=== PATIENT | female | born 1990 | race Caucasian/White ===

== ENCOUNTER 2017-10-10 17:46 | Inpatient (IN) | payer OTHER ==
[~2017-10-10] VITALS: Ht 157.5 cm; Wt 54.4 kg
--- NOTE | ~2017-10-10 | P ---
[facility] [place] [address] PROCEDURE REPORT Name: ELVIRA STILL Room #: 349-I ADM IN M.R.#: [id number] Admission: 10/10/17 Attend Phys: Karl Carson MD Discharge: Date of : 88 Report #: [id number] THIS REPORT FOR: //name// CC: MELLY physician/PCP Karl Carson MD DATE OF SERVICE: 10/13/2017 PROCEDURE PERFORMED: Colonoscopy. HISTORY OF PRESENT ILLNESS: The patient is a 26-year-old female who was admitted with a history of alcohol abuse for alcohol withdrawal. She has been having some bright red blood per rectum as well as dark stools. Upper endoscopy was performed yesterday by my partner, Dr. Mercy Moser, this showed a mild gastritis. Biopsies were obtained. No evidence of bleeding. Plan is for colonoscopy today. DESCRIPTION OF PROCEDURE: The risks and benefits of the procedure were explained to the patient, those risks including, but not limited to bleeding, perforation and the risk of sedation. She understood these risks and gave informed consent. Sedation was given using propofol per anesthesia. Next, a digital rectal exam was initially performed, which was normal. Next, using a standard Olympus colonoscope, the scope was placed in the patient's anus and advanced under direct vision to the cecum. The overall prep was excellent. The cecum and ileocecal valve were normal in appearance. Terminal ileum was intubated and normal in appearance. Ascending, transverse, descending and sigmoid colon were all normal. The rectal mucosa was normal. There were no abnormalities noted on retroflexion. Close examination of the anal canal showed a small anal fissure. There was no evidence of bleeding. No hemorrhoids were noted. The scope was then withdrawn and the procedure terminated. The patient tolerated the procedure well. IMPRESSION: 1. Small anal fissure, likely source of recent bright red blood per rectum. 2. Otherwise, normal colonoscopy. RECOMMENDATIONS: 1. High fiber diet. 2. Analpram 2.5% b.i.d. for the next 2 weeks and then p.r.n. [facility] [address] [place] [address] PROCEDURE REPORT Name: ELVIRA STILL Room #: 349-I [facility] IN .R.#: [id number] Admission: 10/10/17 Attend Phys: Karl Carson MD Discharge: Date of : 88 Report #: [id number] Thank you for allowing me to participate in her care. By: [id number] Mat Mckay MD /nt
--- NOTE | ~2017-10-10 | PATH ---
[facility] [address] [place] [address] PATHOLOGY RPT PROCEDURE Name: GUERITA STILL Room #: 349-I ADM IN M.R.#: [id number] Admission: 10/10/17 Date of : 88 Discharge: Report #: [id number] Path Case #: [id number] [facility] Accession Number: [id number] . 01 Material submitted: . BIOPSY, GASTRITIS . 01 Clinical history: . Pre-OP DX: Melena Post-OP DX: Gastritis . 02 Diagnosis: Gastric mucosa, gastritis, endoscopic biopsy: - Mild chronic active gastritis. - Negative for intestinal metaplasia or atrophy. - Negative for Helicobacter pylori (please see comment). S/10/13/2017 . 02 Comment: Helicobacter pylori immunohistochemical stain (properly controlled) performed on Block A1 - negative. . An intensive search for Helicobacter pylori-like organisms is negative. Absence of such organisms does not entirely exclude the possibility and may be due to sampling. Other possible etiologies may include chemical gastritis, autoimmune gastritis, gastritis associated with inflammatory bowel disease. Please correlate with clinical, endoscopic, and microbiological studies if clinically indicated. (IUV:maris; 10/13/2017) . 02 Electronically signed: . Rebekah Murray MD, Pathologist NPI- [id number] . 01 Gross description: . Received in formalin labeled "Guerita Still, BX gastritis," are 3 segments of mixon soft tissue measuring 0.9 x 0.6 x 0.2 cm in aggregate dimensions and ranging from 0.4 to 0.7 cm in maximum dimension. The specimen is submitted entirely in cassette A1. (TSD; 10/12/2017) TOB/TOB . 02 CPT . 902803, [id number] Performed at: [address] [place] [id number] [id number] [address] [place] [address] PATHOLOGY RPT PROCEDURE Name: GUERITA STILL Room #: 349-I ADM IN ..#: [id number] Admission: 10/10/17 Date of : 88 Discharge: Report #: [id number] Path Case #: [id number] MD Angel Jarrell MD Phone: [phone] Performed at: [address] [place] [address] [address] [place], [place] [id number] MD Rebekah Murray MD Phone: [phone]
--- NOTE | ~2017-10-10 | HC ---
[facility] [place] [address] CONSULTATION Name: ELVIRA STILL Room #: 349-I ADM IN M.R.#: [id number] Admission: 10/10/17 Attend Phys: Karl Carson MD Discharge: Date of : 88 Report #: [id number] THIS REPORT FOR: //name// CC: MELLY physician/PCP Karl Carson DATE OF SERVICE: 10/12/2017 CONSULTATION REQUESTED BY: Karl Carson MD REASON FOR CONSULTATION: UTI. HISTORY OF PRESENT ILLNESS: The patient is a 26-year-old white woman admitted with alcohol withdrawal. History of alcoholism, previous detoxification, previous seizure disorder. The patient relates significant nausea and vomiting. Nothing said about urinary tract infection type symptoms. Did have blood per rectum. Vomiting on multiple occasions. PAST MEDICAL HISTORY: 1. Alcohol abuse and alcohol withdrawal. Nausea and vomiting, possibly secondary to above. 2. History of peptic ulcer disease 3. Scoliosis. SOCIAL HISTORY: . Three children. Smokes cigarettes. Uses some marijuana. Drinks heavily alcohol. DRUG ALLERGIES: PENICILLIN. MEDICATIONS: Cipro 400 mg IV every 12 hours, vancomycin 750 mg IV twice daily, meropenem 1 g IV every 8 hours, hydrocortisone topical to hand for red man syndrome, pantoprazole, vitamins, thiamine, prochlorperazine p.r.n., nicotine patch, , lorazepam p.r.n., acetaminophen p.r.n., normal saline intravenously. REVIEW OF SYSTEMS: As above. See H and P. PHYSICAL EXAMINATION: GENERAL: A well-developed woman, not toxic looking, no distress, complaining of some abdominal pain. VITAL SIGNS: Temperature 98.1, pulse 72, respirations 20, BP 120/93, weight 120 pounds or 135 pounds, we have 2 choices, height 5.2 inches. HEENMT: Within range. NECK: Supple. LUNGS: Clear. HEART: S1, S2. [facility] [address] [place] [address] CONSULTATION Name: ELVIRA STILL Room #: 349-I ADM IN [facility].#: [id number] Admission: 10/10/17 Attend Phys: Karl Carson MD Discharge: Date of : 88 Report #: [id number] BREASTS: Deferred. ABDOMEN: Soft, no masses or megaly. PELVIC AND RECTAL: Deferred. EXTREMITIES: No clubbing, cyanosis. NEUROLOGIC: Grossly within normal limits. LABORATORY DATA: Sodium 138, potassium 3, BUN 6, creatinine 0.6, glucose 86, SGOT 52, alkaline phosphatase 1.8, hypomagnesemia 1.6 mg/dL elevation of CPK 352. Alcohol on admission 161. Urine drug screen positive for tetrahydrocannabinol. WBC 11,000 on admission, 5200 today, hemoglobin 13.5 on admission, 11 g/dL today. MCV low at 79.7, possible iron deficiency anemia. Platelets normal on admission, decreased to 124,000 today. test negative. Urinalysis positive for protein, ketones, blood, positive nitrite, 2+ leukocyte esterase. The microscopic exam revealed pyuria and bacteriuria. MICROBIOLOGY DATA: Revealed greater than 100,000 colonies of Staphylococcus aureus, oxacillin sensitive. Stool positive for occult blood. RADIOLOGY EVALUATION: CT scan of abdomen and pelvis revealed fatty liver, splenomegaly, dilated stomach, lung genao clear. Gallbladder distended. No evidence of cholecystitis. Ovarian cysts noted. ASSESSMENT: 1. Question urinary tract infection with Staphylococcus aureus. 2. Alcoholism with steatohepatitis and splenomegaly. 3. Thrombocytopenia secondary to above. SUGGESTIONS: Recommend discontinue vancomycin, Cipro and decrease dose of meropenem. The patient has experienced red man syndrome from vancomycin. We will discontinue. Dr. Carson, thank you for requesting my suggestion. <ELECTRONICALLY SIGNED> By: Nahid Whyte MD 10/13/17 [id number] Nahid Whyte MD /nt
--- NOTE | ~2017-10-10 | EKG ---
[address] [address] ELECTROCARDIOGRAM REPORT Name: ELVIRA STILL Room #: 349-I DIS IN M.R.#: [id number] Admission: 10/10/17 Attend Phys: Karl Carson MD Discharge: 10/14/17 Date of : 88 Report #: [id number] THIS REPORT FOR: //name// [facility] Test Date: 2017-10-13 Test Time: 18:34:03 Pat Name: ELVIRA STILL Department: Room: [facility] Gender: F Principal Mechanical Engineer: Raghav STRICKLAND : 1990 Requested By: Karl Carson Order Number: [id number] MD: Aaron Whyte Measurements Intervals [place] Rate: 128 P: 71 [place]: 126 QRS: 60 QRSD: 98 T: 55 QT: 347 QTc: 507 Interpretive Statements Sinus tachycardia Consider right atrial enlargement No previous ECG available for comparison Electronically Signed On 10-14-2017 21:32:19 CDT by Aaron Whyte [email or web address] <ELECTRONICALLY SIGNED> By: Aaron Whyte MD 10/14/172131 33 33 Aaron Whyte MD /YAN
[2017-10-10 18:00] VITALS: BP 144/95
[2017-10-10 18:49] LABS: HEMATOCRIT 41.7 % (37.0-47.0); HEMOGLOBIN 13.5 gm/dL (12.0-15.0); MCH 25.9 pg (26.0-34.0); MCHC 32.5 g/dL (28.0-37.0); MCV 79.8 fL (80.0-100.0); PLATELET COUNT 252 thou/uL (150-400); RBC 5.22 mil/uL (4.20-5.00); RDW 22.5 % (10.5-14.5); WBC 11.1 thou/uL (4.0-11.0)
[2017-10-10 18:59] LABS: ANION GAP 24 mmol/L (7-16); BUN 12 mg/dL (7-18); CHLORIDE 94 mmol/L (98-107); CO2 18 mmol/L (21-32); CREATININE 0.9 mg/dL (0.6-1.0); GLUCOSE 152 mg/dL (74-106); POTASSIUM 4.3 mmol/L (3.5-5.1); SODIUM 136 mmol/L (136-145)
[2017-10-10 19:04] LABS: ALBUMIN 4.7 g/dL (3.4-5.0); LIPASE 149 U/L (73-393); SALICYLATE < 2.8 mg/dL (2.8-20.0); SGOT 52 U/L (15-37); SGPT 24 U/L (30-65); TOTAL PROTEIN 8.9 g/dL (6.4-8.2)
[2017-10-10 19:18] LABS: ABSOLUTE NEUTROPHILS 9.7 thou/uL (1.4-8.2)
[2017-10-10 19:19] LABS: ANISOCYTOSIS 3+; MACROCYTES 1+; OVALOCYTES OCCASIONAL
[2017-10-10 20:14] LABS: URINE BILIRUBIN NEGATIVE (Negative); URINE BLOOD 1+ (Negative); URINE CLARITY CLEAR; URINE COLOR YELLOW; URINE GLUCOSE-RANDOM* NEGATIVE (Negative); URINE KETONES 3+ (Negative); URINE PROTEIN (DIPSTICK) 2+ (Negative); URINE SPECIFIC GRAVITY >= 1.030 (1.005-1.035)
[2017-10-10 20:16] LABS: URINE LEUKOCYTES-REFLEX 2+ (Negative); URINE NITRITE-REFLEX POSITIVE (Negative)
[2017-10-10 20:21] LABS: BACTERIA-REFLEX >30 Many /HPF (None Seen); CASTS None Seen /LPF (None Seen); CRYSTALS None Seen /LPF (None Seen); SQUAMOUS 0-3 Few /LPF (0-3); URINE RBC 3-10 Few /HPF (0-2); URINE WBC-REFLEX >25 Many /HPF (0-5)
[2017-10-10 20:26] LABS: AMP/METHAMP Negative (Negative); BARBITURATES Negative (Negative); BENZODIAZEPINES Negative (Negative); COCAINE Negative (Negative); METHADONE Negative (Negative); OPIATES Negative (Negative); PCP Negative (Negative)
[2017-10-10 22:10] VITALS: BP 152/85
[2017-10-10 22:15] VITALS: BP 134/93
[2017-10-10 22:24] LABS: PHOSPHORUS 3.4 mg/dL (2.5-4.9)
[2017-10-10 23:41] LABS: FOLIC ACID 55.7 ng/mL (8.6-58.9)
[2017-10-11] VITALS (7 sets, daily range): BP systolic 120–150; BP diastolic 86–110
[2017-10-11 06:10] LABS: HEMATOCRIT 31.9 % (37.0-47.0)
[2017-10-11 06:19] LABS: HEMOGLOBIN 10.6 gm/dL (12.0-15.0)
[2017-10-11 17:30] LABS: HEMATOCRIT 34.2 % (37.0-47.0); HEMOGLOBIN 11.2 gm/dL (12.0-15.0)
[2017-10-12 03:23] VITALS: BP 126/90
[2017-10-12 04:47] LABS: ABSOLUTE NEUTROPHILS 3.9 thou/uL (1.4-8.2); BASOPHILS 0.3 % (0.0-2.0); EOSINOPHILS 0.5 % (0.0-3.0); HEMATOCRIT 33.4 % (37.0-47.0); LYMPHOCYTES 21.2 % (24.0-44.0); MCH 26.2 pg (26.0-34.0); MCHC 32.9 g/dL (28.0-37.0); MCV 79.7 fL (80.0-100.0); MONOCYTES 3.8 % (1.0-8.0); POLYS 74.2 % (36.0-66.0); RDW 22.4 % (10.5-14.5); WBC 5.2 thou/uL (4.0-11.0)
[2017-10-12 04:56] LABS: CALCIUM 8.6 mg/dL (8.5-10.1); CREATININE 0.6 mg/dL (0.6-1.0); MAGNESIUM 1.6 mg/dL (1.8-2.4); PHOSPHORUS 2.9 mg/dL (2.5-4.9)
[2017-10-12 05:04] LABS: PLATELET COUNT 124 thou/uL (150-400)
[2017-10-12 08:03] VITALS: BP 128/93
[2017-10-12 11:56] VITALS: BP 135/94
[2017-10-12 17:09] VITALS: BP 154/112
[2017-10-12 17:36] LABS: HEMATOCRIT 33.8 % (37.0-47.0); HEMOGLOBIN 11.2 gm/dL (12.0-15.0)
[2017-10-12 20:00] VITALS: BP 156/111
[2017-10-13] VITALS (7 sets, daily range): BP systolic 138–153; BP diastolic 102–119
[2017-10-13 04:09] LABS: MCH 26.4 pg (26.0-34.0); MCHC 33.3 g/dL (28.0-37.0); MCV 79.2 fL (80.0-100.0); RBC 4.16 mil/uL (4.20-5.00); RDW 22.7 % (10.5-14.5); WBC 4.5 thou/uL (4.0-11.0)
[2017-10-13 12:57] LABS: CALCIUM 8.8 mg/dL (8.5-10.1); CREATININE 0.6 mg/dL (0.6-1.0); MAGNESIUM 1.8 mg/dL (1.8-2.4); POTASSIUM 3.3 mmol/L (3.5-5.1)
[2017-10-13 17:21] LABS: HEMATOCRIT 35.6 % (37.0-47.0); HEMOGLOBIN 11.5 gm/dL (12.0-15.0)
[2017-10-14 00:02] VITALS: BP 141/112
[2017-10-14 04:55] VITALS: BP 113/76
[2017-10-14 05:31] LABS: ABSOLUTE NEUTROPHILS 1.8 thou/uL (1.4-8.2); BASOPHILS 0.3 % (0.0-2.0); EOSINOPHILS 1.5 % (0.0-3.0); HEMATOCRIT 31.9 % (37.0-47.0); HEMOGLOBIN 10.5 gm/dL (12.0-15.0); MCH 26.8 pg (26.0-34.0); MCHC 32.9 g/dL (28.0-37.0); MCV 81.4 fL (80.0-100.0); MONOCYTES 7.6 % (1.0-8.0); PLATELET COUNT 100 thou/uL (150-400); POLYS 49.6 % (36.0-66.0); RBC 3.92 mil/uL (4.20-5.00); RDW 22.2 % (10.5-14.5); WBC 3.6 thou/uL (4.0-11.0)
[2017-10-14 05:43] LABS: CALCIUM 8.9 mg/dL (8.5-10.1); CREATININE 0.7 mg/dL (0.6-1.0); MAGNESIUM 2.4 mg/dL (1.8-2.4); POTASSIUM 4.1 mmol/L (3.5-5.1)
[2017-10-14 05:52] LABS: ANISOCYTOSIS 3+
[2017-10-14 05:53] LABS: MACROCYTES 1+; POLYCHROMASIA 1+
[2017-10-14 07:05] VITALS: BP 136/104
[2017-10-14 12:00] VITALS: BP 125/87
[2017-10-14 16:27] VITALS: BP 145/108
== END 2017-10-14 18:26 | disposition left against medical advice (07) | DRG 442 ==
LOC: ER 17:46 → EROBS 20:58 → 3W 20:58
PROVIDERS: Emergency Medicine; Hospitalist; Internal Medicine Gastroenterology; Nurse Practitioner Acute Care
PROC: 0DB68ZX Excision of Stomach, Via Natural or Artificial Opening Endoscopic, Diagnostic (ICD-10-PCS; principal; 2017-10-12)
PROC: 0DJD8ZZ Inspection of Lower Intestinal Tract, Via Natural or Artificial Opening Endoscopic (ICD-10-PCS; 2017-10-13)
DX: K76.6 Portal hypertension (principal); N39.0 Urinary tract infection, site not specified; F10.239 Alcohol dependence with withdrawal, unspecified; E87.2 Acidosis; K31.89 Other diseases of stomach and duodenum; F17.210 Nicotine dependence, cigarettes, uncomplicated; M41.9 Scoliosis, unspecified; R16.1 Splenomegaly, not elsewhere classified; D69.6 Thrombocytopenia, unspecified; F41.9 Anxiety disorder, unspecified; F39 Unspecified mood [affective] disorder; F12.10 Cannabis abuse, uncomplicated; G40.909 Epilepsy, unspecified, not intractable, without status epilepticus; R16.0 Hepatomegaly, not elsewhere classified; K70.0 Alcoholic fatty liver; D64.9 Anemia, unspecified; K60.2 Anal fissure, unspecified; Y90.9 Presence of alcohol in blood, level not specified; Z88.0 Allergy status to penicillin; Z79.2 Long term (current) use of antibiotics; Z79.899 Other long term (current) drug therapy
CPT/HCPCS: 10879; 62110; 62900; 70005

== ENCOUNTER 2018-09-22 20:42 | Inpatient (IN) | payer OTHER ==
[~2018-09-22] VITALS: Ht 157.5 cm; Wt 63.5 kg
[~2018-09-22 20:42] MED LIST: GABAPENTIN 100100 MG PO; KEFLEX500 M1 PO; PROTONIX40 M1 PO
[2018-09-22 20:43] VITALS: BP 132/83
[2018-09-22] MEDS ORDERED: ZANTAC 150MG T150 MG PO (21:04)
[2018-09-22 21:15] LABS: ABSOLUTE NEUTROPHILS 9.2 thou/uL (1.4-8.2); BASOPHILS 0.1 % (0.0-2.0); HEMATOCRIT 38.9 % (37.0-47.0); HEMOGLOBIN 12.9 gm/dL (12.0-15.0); LYMPHOCYTES 5.9 % (24.0-44.0); MCH 30.2 pg (26.0-34.0); MCHC 33.1 g/dL (28.0-37.0); MCV 91.2 fL (80.0-100.0); PLATELET COUNT 166 thou/uL (150-400); RBC 4.27 mil/uL (4.20-5.00); RDW 22.1 % (10.5-14.5); WBC 10.1 thou/uL (4.0-11.0)
[2018-09-22 21:27] LABS: ALBUMIN 5.1 g/dL (3.4-5.0); CALCIUM 10.1 mg/dL (8.5-10.1); DIRECT BILIRUBIN 0.8 mg/dL (<0.1-0.3); TOTAL PROTEIN 8.9 g/dL (6.4-8.2)
[2018-09-22 21:29] LABS: POTASSIUM 2.7 mmol/L (3.5-5.1)
[2018-09-22 22:26] LABS: ANISOCYTOSIS 3+
[2018-09-22 22:38] LABS: URINE BILIRUBIN NEGATIVE (Negative); URINE BLOOD TRACE (Negative); URINE CLARITY CLEAR; URINE COLOR YELLOW; URINE GLUCOSE-RANDOM* NEGATIVE (Negative); URINE KETONES 3+ (Negative); URINE LEUKOCYTES-REFLEX NEGATIVE (Negative); URINE NITRITE-REFLEX NEGATIVE (Negative); URINE PROTEIN (DIPSTICK) 2+ (Negative)
[2018-09-22 22:44] LABS: AMP/METHAMP Negative (Negative); BARBITURATES Negative (Negative); BENZODIAZEPINES Negative (Negative); COCAINE Negative (Negative); METHADONE Negative (Negative); OPIATES Negative (Negative); PCP Negative (Negative)
[2018-09-22 22:50] LABS: URINE REDUCING SUBSTANCE 0 %
[2018-09-22 22:54] LABS: SQUAMOUS None Seen /LPF (0-3)
[2018-09-22 22:55] LABS: BACTERIA-REFLEX >30 Many /HPF (None Seen); CRYSTALS None Seen /LPF (None Seen); HYALINE CASTS 0-3 Few /LPF (None Seen); MUCUS 0-3 Light strn/LPF (None Seen); RENAL EPITHELIAL CELLS 0-3 Few /LPF (None Seen); URINE RBC 0-2 Rare /HPF (0-2); URINE WBC-REFLEX 0-5 Rare /HPF (0-5)
[2018-09-22 23:16] VITALS: BP 117/87
[2018-09-22 23:28] VITALS: BP 117/87
[2018-09-22 23:44] VITALS: BP 157/95
[2018-09-23 00:14] LABS: MAGNESIUM 1.3 mg/dL (1.8-2.4); PHOSPHORUS 3.8 mg/dL (2.5-4.9)
--- NOTE | 2018-09-23 02:22 | NUR ---
PT KNOWN FROM [facility] HERE, PT ACKNOWLEDGES AND SIGNS TELEMETRY SHEET. SHERI FROM LAB CALLED WITH CRITICAL LAB ON LACTIC ACID OF 6.9. CALLED JAYSHREE LEE AND SAID TO FOLLOW POC.
[2018-09-23 04:09] VITALS: BP 163/3
[2018-09-23 06:08] LABS: CALCIUM 9.4 mg/dL (8.5-10.1); CREATININE 0.8 mg/dL (0.6-1.0); MAGNESIUM 2.5 mg/dL (1.8-2.4)
[2018-09-23 06:10] LABS: POTASSIUM 4.1 mmol/L (3.5-5.1)
[2018-09-23 06:34] LABS: FOLIC ACID 2.7 ng/mL (8.6-58.9)
[2018-09-23 07:25] VITALS: BP 186/116
[2018-09-23 11:23] VITALS: BP 184/125
--- NOTE | 2018-09-23 13:30 | NUR ---
Assumed care of patient at 0700. BP elevated, but patient is on CIWA protocol. CIWAs as charted and treating per protocol. Alert and oriented x4, anxious at times. Tremors, sweats, headache and nausea. PRN Ativan seems to help improve symptoms; patient currently resting. Seizure precautions in place. Zofran given PRN for nausea. Able to tolerate some food, but not much of an appetite. Complaints of burning, constant abdominal pain, states has been going on for weeks. Voiding adequately; up with stand-by assist. Fall precautions in place. Ultrasound completed per order to rule out ectopic . Communicated results to Dr. Kim. Plan to treat patient symptoms for next 1-2 days and then have patient follow up outpatient for additional problems. Attempting to progress towards POC. Will continue to monitor.
[2018-09-23 15:55] VITALS: BP 150/102
[2018-09-23 19:30] VITALS: BP 144/113
--- NOTE | 2018-09-23 19:55 | NUR ---
ML ORDER ON HOLD FOR NOW
[2018-09-24 04:10] VITALS: BP 148/110
--- NOTE | 2018-09-24 04:58 | NUR ---
Patient remains ALOx4, but forgetful at times. Patient states she feels like her head is cloudy. No vomiting occurred, but nausea treated with IV zofran. Patient has reported shakiness and bad anxiety all shift. CIWAs have been in the range from 9-12. 2MG IV ATIVAN given for treatment of CIWA scores. Patient up standby with bed alarm on and seizure precautions in place. Fall precautions in place as well. Partial progress toward plan of care at this time.
[2018-09-24 05:41] LABS: HEMATOCRIT 37.7 % (37.0-47.0); HEMOGLOBIN 12.3 gm/dL (12.0-15.0); MCH 30.4 pg (26.0-34.0); MCHC 32.7 g/dL (28.0-37.0); MCV 93.2 fL (80.0-100.0); RBC 4.05 mil/uL (4.20-5.00); RDW 22.1 % (10.5-14.5); WBC 3.1 thou/uL (4.0-11.0)
[2018-09-24 05:58] LABS: CALCIUM 8.8 mg/dL (8.5-10.1); CREATININE 0.5 mg/dL (0.6-1.0); MAGNESIUM 1.8 mg/dL (1.8-2.4); PHOSPHORUS 1.5 mg/dL (2.5-4.9); POTASSIUM 3.6 mmol/L (3.5-5.1)
[2018-09-24 07:21] VITALS: BP 146/119
--- NOTE | 2018-09-24 10:47 | NUR ---
Assumed care of patient at 0700. Patient alert and oriented x4; CIWAs as charted and Ativan given PRN. Patient reports feeling better today; less nausea and abdominal pain. Up with SBA; still with tremors and seizure precautions in place. Patient states she must leave by [address] Kim. At 1030, patient states she must leave now, cannot wait for the doctor. Advised patient to wait until Dr. Kim rounds, but is refusing. Wants to leave AMA. Against medical advice paper signed and witnessed by this RN. Dr. Kim notified. Telemetry and IV discontinued. Left hospital AMA.
== END 2018-09-24 10:45 | disposition left against medical advice (07) | DRG 683 ==
LOC: ER 20:42 → EROBS 22:55 → 3W 23:29
PROVIDERS: Emergency Medicine; Hospitalist; Nurse Practitioner Family; ADMIT Hospitalist
DX: N17.9 Acute kidney failure, unspecified (principal); E87.2 Acidosis; F10.120 Alcohol abuse with intoxication, uncomplicated; F41.9 Anxiety disorder, unspecified; E87.6 Hypokalemia; Y90.9 Presence of alcohol in blood, level not specified; K25.9 Gastric ulcer, unspecified as acute or chronic, without hemorrhage or perforation; Z53.21 Procedure and treatment not carried out due to patient leaving prior to being seen by health care provider; F17.210 Nicotine dependence, cigarettes, uncomplicated; E86.0 Dehydration; Z98.891 History of uterine scar from previous surgery; Z79.899 Other long term (current) drug therapy; Z88.0 Allergy status to penicillin; Z71.6 Tobacco abuse counseling; Z71.41 Alcohol abuse counseling and surveillance of alcoholic
CPT/HCPCS: 10879

== ENCOUNTER 2018-11-12 20:22 | Inpatient (IN) | payer OTHER ==
[~2018-11-12] VITALS: Ht 157.5 cm; Wt 56.2 kg
[2018-11-12 20:22] VITALS: BP 132/105
[~2018-11-12 20:22] MED LIST changes: +ZANTAC 150MG T150 MG PO
[2018-11-12 20:48] LABS: ABSOLUTE NEUTROPHILS 4.1 thou/uL (1.4-8.2); BASOPHILS 0.6 % (0.0-2.0); EOSINOPHILS 0.1 % (0.0-3.0); HEMATOCRIT 38.7 % (37.0-47.0); HEMOGLOBIN 13.2 gm/dL (12.0-15.0); MCH 32.7 pg (26.0-34.0); MCHC 34.2 g/dL (28.0-37.0); MCV 95.5 fL (80.0-100.0); MONOCYTES 6.7 % (1.0-8.0); PLATELET COUNT 198 thou/uL (150-400); POLYS 84.6 % (36.0-66.0); RBC 4.05 mil/uL (4.20-5.00); RDW 20.9 % (10.5-14.5); WBC 4.8 thou/uL (4.0-11.0)
[2018-11-12 21:05] LABS: ALBUMIN 4.4 g/dL (3.4-5.0); CALCIUM 8.2 mg/dL (8.5-10.1); CREATININE 0.6 mg/dL (0.6-1.0); DIRECT BILIRUBIN 0.6 mg/dL (<0.1-0.3); TOTAL BILIRUBIN 2.1 mg/dL (<0.1-1.0); TOTAL PROTEIN 9.1 g/dL (6.4-8.2)
[2018-11-12 21:07] LABS: POTASSIUM 2.5 mmol/L (3.5-5.1)
[2018-11-13 00:36] LABS: URINE BILIRUBIN 2+ (Negative); URINE BLOOD 1+ (Negative); URINE CLARITY CLOUDY; URINE COLOR ORANGE; URINE GLUCOSE-RANDOM* NEGATIVE (Negative); URINE KETONES NEGATIVE (Negative); URINE LEUKOCYTES-REFLEX TRACE (Negative); URINE NITRITE-REFLEX NEGATIVE (Negative); URINE PROTEIN (DIPSTICK) 2+ (Negative)
[2018-11-13 00:47] LABS: BACTERIA-REFLEX >30 Many /HPF (None Seen); CASTS None Seen /LPF (None Seen); CRYSTALS None Seen /LPF (None Seen); MUCUS 4-6 Moderate strn/LPF (None Seen); SQUAMOUS 0-3 Few /LPF (0-3); URINE RBC 3-10 Few /HPF (0-2); URINE WBC-REFLEX 6-15 Few /HPF (0-5); WBC CLUMPS Few (None Seen)
[2018-11-13 01:19] VITALS: BP 151/105
[2018-11-13 06:00] LABS: CALCIUM 7.7 mg/dL (8.5-10.1); CREATININE 0.6 mg/dL (0.6-1.0)
[2018-11-13 06:02] LABS: POTASSIUM 2.9 mmol/L (3.5-5.1)
--- NOTE | 2018-11-13 06:37 | NUR ---
PT IS FAMILIAR TO [facility]. PREVIOUS VISITS FOR SAME DIAGNOSES. PT A/0X4 BUT VERY SLOW TO REACT DUE TO DETOX. BEGAN POC WITH CIWA'S. INITIAL WAS 7, THEN NEXT WAS A 9. SWEATING, TREMORS, AND ANXIETY BEING SEEN. COMPLAINTS OF NAUSEA, GAVE IV ZOFRAN WITH GOOD RESULTS. FOLLOWING POC WITH IVF BANANA BAG. CRITICAL LAB RESULTED WITH K+ AT 2.9. ELECTROLYTE PROTOCOL IN PLACE. PT STATES SHE HAD 2 EPISODES OF SEIZURES AT HOME. HOURLY ROUNDING.
[2018-11-13 07:46] VITALS: BP 142/107
[2018-11-13 11:28] VITALS: BP 150/117
[2018-11-13 15:02] VITALS: BP 145/108
--- NOTE | 2018-11-13 18:39 | NUR ---
PATIENT CONT ON ETOH WITHDRAWAL PROTOCOL. HAD TO MEDICATE TWICE TODAY. SHE IS IMPROVING SIGNIFICANLTY. SHE DENIES PAIN. REMAINS ALERT ORIENTED X4. NO SEIZURES NOTED. RESPIRATONS NON LABORED. WILL CONT WITH PLAN OF CARE.
[2018-11-13 19:10] VITALS: BP 150/114
--- NOTE | 2018-11-13 23:14 | NUR ---
SUPERVISOR REFRACTORY PRODUCTS VOCATIONAL COUNSELOR FOR HOSPITALIST NOTIFIED OF ELEVATED BP. NO NEW ORDERS RECEIVED. JUST TREAT ETOH WITHDRAWAL PER PROTOCOL AND MONITOR BP. LORAZEPAM GIVEN.
[2018-11-13 23:29] VITALS: BP 139/98
[2018-11-14 03:19] VITALS: BP 148/91
--- NOTE | 2018-11-14 04:41 | NUR ---
ASSUMED PT CARE AROUND 1900. A&OX4. CIWA Q4H. LORAZEPAM GIVEN INDICATED PER ETOH W/D PROTOCOL. PT C/O ANXIETY AND HAVING CONVERSATIONS WITH PEOPLE WHO ARE NOT REALLY PRESENT. MILD HAND TREMORS NOTED. PT IMPULSIVE AT TIMES. FALL PRECAUTIONS IN PLACE. UP W/ SBA TO BTR. MAGNESIUM REPLACED PER PROTOCOL. IVF INFUSING ORDERED. PT SLEPT PART OF THE NIGHT. RESP EVEN AND UNLABORED. PROGRESSING SLOWLY TOWARD POC GOALS. WILL CONTINUE TO MONITOR FURTHER.
[2018-11-14 06:01] LABS: CALCIUM 8.7 mg/dL (8.5-10.1); CREATININE 0.7 mg/dL (0.6-1.0); MAGNESIUM 1.7 mg/dL (1.8-2.4); PHOSPHORUS 3.3 mg/dL (2.5-4.9); POTASSIUM 3.8 mmol/L (3.5-5.1)
[2018-11-14 07:07] VITALS: BP 160/116
--- NOTE | 2018-11-14 10:44 | NUR ---
INITIAL ASSESSMENT/DISCHARGE NOTE: Received consult due to pt with hx of ETOH abuse. TICO reviewed chart and spoke with nursing. Pt was admitted from home due to seizures due to ETOH withdrawal. Pt with hx of drinking 1 pint of vodka daily. TICO met with pt at bedside. Introduced role of SW. Pt is alert/orientated x 4. Pt reports she lives at home with her mother. Prior to admission, pt was indepedent with ADLs. No use of DME or hx of HH services or SNF/Rehab placement. SW provided pt with Health Resource Guide (Medical/Behavioral Health info) and prescription discount card. Pt states she has [place]-Medicaid, but it may not be active. Pt states she is leaving at 1300 this afternoon. Discharge orders/summary have not yet been completed. TICO discussed with JOYCELYN grande, who states pt's Medicaid is inactive. JOYCELYN grande to see if he can assist with getting pt's Medicaid re-instated. Plan is for pt to discharge home. No additional SW needs identified at this time, but is available to assist should needs arise.
[2018-11-14] MEDS ORDERED: VITAMIN B-1100 M2 PO (10:53)
[2018-11-14] MEDS ORDERED: PROTONIX40 M1 PO (10:53)
[2018-11-14] MEDS ORDERED: CLEOCIN HCL150 MG PO (10:53)
[2018-11-14 11:21] VITALS: BP 166/126
[2018-11-14 12:30] VITALS: BP 166/126
--- NOTE | 2018-11-14 15:06 | NUR ---
DISCHARGED TO HOME IV REMOVED AND FIRST OFFICER AND FLIGHT INSTRUCTOR REMOVED. PATIENT REPORTS SHE FEELS MUCH BETTER AND IS READY FOR DISCHARGE. DENIES PAIN. AMBULATES WITH SLOW STEADY GAIT. PRECRIPTIONS GIVEN AND DISCHARGE INSTRUCTIONS GIVEN.
--- NOTE | 2018-11-15 09:31 | NUR ---
May met with the pt yesterday prior to dc and confirmed the pt has a mo medicaid application pending.
== END 2018-11-14 13:23 | disposition home or self-care (01) | DRG 101 ==
LOC: ER 20:22 → 3W 11-13 00:34 → EROBS 11-13 00:34 → 3W 11-13 01:20
PROVIDERS: Emergency Medicine; Nurse Practitioner Family; ADMIT Internal Medicine
DX: G40.409 Other generalized epilepsy and epileptic syndromes, not intractable, without status epilepticus (principal); F10.239 Alcohol dependence with withdrawal, unspecified; F17.210 Nicotine dependence, cigarettes, uncomplicated; R94.5 Abnormal results of liver function studies; E87.6 Hypokalemia; F41.9 Anxiety disorder, unspecified; F31.9 Bipolar disorder, unspecified; Z88.0 Allergy status to penicillin
CPT/HCPCS: 10879

== ENCOUNTER 2019-03-06 12:10 | Inpatient (IN) | payer OTHER ==
[~2019-03-06] VITALS: Ht 157.5 cm; Wt 59.0 kg
[~2019-03-06 12:10] MED LIST changes: +CLEOCIN HCL150 MG PO; +VITAMIN B-1100 M2 PO
[2019-03-06 12:11] VITALS: BP 160/113
[2019-03-06 12:45] LABS: CALCIUM 10.7 mg/dL (8.5-10.1); CREATININE 0.6 mg/dL (0.6-1.0); HEMATOCRIT 38.5 % (37.0-47.0); HEMOGLOBIN 12.8 gm/dL (12.0-15.0); MCH 31.3 pg (26.0-34.0); MCHC 33.3 g/dL (28.0-37.0); MCV 93.9 fL (80.0-100.0); PLATELET COUNT 146 thou/uL (150-400); RDW 22.7 % (10.5-14.5); WBC 6.6 thou/uL (4.0-11.0)
[2019-03-06 12:51] LABS: ALBUMIN 5.2 g/dL (3.4-5.0); TOTAL BILIRUBIN 3.2 mg/dL (<0.1-1.0); TOTAL PROTEIN 9.5 g/dL (6.4-8.2)
[2019-03-06 13:20] LABS: URINE BILIRUBIN 1+ (Negative); URINE BLOOD 2+ (Negative); URINE CLARITY CLEAR; URINE COLOR YELLOW; URINE GLUCOSE-RANDOM* NEGATIVE (Negative); URINE KETONES 3+ (Negative); URINE LEUKOCYTES-REFLEX NEGATIVE (Negative); URINE NITRITE-REFLEX NEGATIVE (Negative); URINE PROTEIN (DIPSTICK) 3+ (Negative); URINE SPECIFIC GRAVITY >= 1.030 (1.005-1.035); URINE UROBILINOGEN 0.2 E.U./dl (0.2-1.0)
[2019-03-06 13:23] LABS: ICTOTEST (BILI CONFIRMATORY) Positive (Negative)
[2019-03-06 13:28] LABS: URINE REDUCING SUBSTANCE NEGATIVE
[2019-03-06 13:37] LABS: INR 1.1; PROTIME 11.1 Seconds (9.3-11.4)
[2019-03-06 13:39] LABS: ABSOLUTE NEUTROPHILS 6.1 thou/uL (1.4-8.2); PLATELET ESTIMATE NORMAL
[2019-03-06 13:40] LABS: SQUAMOUS >10 Many /LPF (0-3)
[2019-03-06 13:41] LABS: HYALINE CASTS 0-3 Few /LPF (None Seen)
[2019-03-06 13:42] LABS: BACTERIA-REFLEX 1-9 Few /HPF (None Seen); CRYSTALS None Seen /LPF (None Seen); URINE RBC 0-2 Rare /HPF (0-2); URINE WBC-REFLEX 0-5 Rare /HPF (0-5)
[2019-03-06 13:48] LABS: BE(vivo) -3.1 mmol/L (-2 to +3); PCO2 VENOUS 30.4 mmHg (41.0-51.0); PO2 VENOUS 109.2 mmHg (35.0-45.0)
[2019-03-06 17:26] VITALS: BP 136/93
[2019-03-06 17:37] LABS: AMP/METHAMP Negative (Negative); BARBITURATES Negative (Negative); BENZODIAZEPINES Negative (Negative); COCAINE Negative (Negative); METHADONE Negative (Negative); OPIATES Negative (Negative); PCP Negative (Negative)
[2019-03-06 18:10] VITALS: BP 141/99
[2019-03-06 18:16] VITALS: BP 161/101
[2019-03-06 18:27] LABS: FOLIC ACID 4.6 ng/mL (8.6-58.9)
--- NOTE | 2019-03-06 18:41 | NUR ---
PATIENT ADMIT TO UNIT AT 1815. A/O X4. NAUSEA NO VOMIT. ON SEIZURE PROCAUTION. WILL KEEP MONITOR
[2019-03-06 20:29] VITALS: BP 151/104
[2019-03-06 23:52] VITALS: BP 168/118
[2019-03-07 04:07] VITALS: BP 159/112
[2019-03-07 07:33] VITALS: BP 183/137
--- NOTE | 2019-03-07 10:39 | NUR ---
INITIAL ASSESSMENT: Received high risk nursing referral. TICO reviewed chart and spoke with nursing. Pt was admitted from home due to abdominal pain/nausea/vomiting. Pt with hx of ETOH abuse, bipolar depression. GI consulted. Pt was here earlier in the year and had an EGD with GI. TICO met with pt at bedside. Introduced role of SW. Pt is alert/orientated x 4. Pt reports she lives at home with her family. Prior to admission, pt was independent with ADLs. No use of DME. No hx of services or post-acute placement. Pt states she does not have a PCP. SW offered to provide pt with info ( Health Resource Guide). Pt declines offer stating that her Medicaid has provided her with a book of providers. Pt states she will look through book when she gets home. Pt is on clear liquid diet and diet will be advanced today. Plan is for pt to return home when medically stable. TICO is following to assist as needed with discharge planning.
[2019-03-07 11:21] VITALS: BP 145/109
[2019-03-07 15:46] VITALS: BP 159/117
--- NOTE | 2019-03-07 16:22 | NUR ---
ASSUMED CARE OF PT AT 0700. PT ALERT AND ORIENTED. MODERATELY ANXIOUS. COOPERATIVE. INTERMITTENT NAUSEA. CIWA 8-10. TACHYCARDIC WITH ACTIVITY. GOOD RELIEF WITH ATIVAN. TOLERATING ADVANCEMENTS IN DIET. PT PROGRESSING TOWARD POC GOALS.
[2019-03-07 19:45] VITALS: BP 149/106
--- NOTE | 2019-03-07 22:58 | NUR ---
ASSUMED CARE AT 1900. PT ASSESSED AT 2029, DENIES PAIN. REPORTS MILD NAUSEA AND ANXIETY WITH TREMORS, ASKING FOR MEDICINE FOR BOTH. GAVE ZOFRAN AND 2 MG ATIVAN FOR CIWA SCORE OF 14. PT TEARFUL, STATING SHE "HAS STUFF GOING ON AT HOME." PT CAME TO DESK AT 2119, STATING SHE "NEEDED TO LEAVE DUE TO PROBLEMS AT HOME". EXPLAINED TO PT ABOUT LEAVING AMA, AND SHE STATED SHE UNDERSTOOD. PT SIGNED AMA FORM, TELE AND IV DISCONTINUED. PT LEFT FLOOR AT 2219 ACCOMPANIED BY AN RN.
== END 2019-03-07 22:28 | disposition left against medical advice (07) | DRG 433 ==
LOC: ER 12:10 → EROBS 17:52 → 3W 18:11
PROVIDERS: Emergency Medicine; Nurse Practitioner; ADMIT Hospitalist
DX: K70.10 Alcoholic hepatitis without ascites (principal); F10.239 Alcohol dependence with withdrawal, unspecified; F41.9 Anxiety disorder, unspecified; K74.60 Unspecified cirrhosis of liver; E87.8 Other disorders of electrolyte and fluid balance, not elsewhere classified; F17.210 Nicotine dependence, cigarettes, uncomplicated; F31.9 Bipolar disorder, unspecified; F12.90 Cannabis use, unspecified, uncomplicated; K76.0 Fatty (change of) liver, not elsewhere classified; Z53.29 Procedure and treatment not carried out because of patient's decision for other reasons; Z88.0 Allergy status to penicillin; Z79.899 Other long term (current) drug therapy
CPT/HCPCS: 10879

== ENCOUNTER 2019-04-20 23:16 | Inpatient (IN) | payer OTHER ==
[~2019-04-20] VITALS: Ht 157.5 cm; Wt 54.4 kg
[2019-04-21] VITALS (8 sets, daily range): BP systolic 109–159; BP diastolic 83–113
[2019-04-21 00:21] LABS: ABSOLUTE NEUTROPHILS 2.2 thou/uL (1.4-8.2); BASOPHILS 0.6 % (0.0-2.0); EOSINOPHILS 0.1 % (0.0-3.0); HEMATOCRIT 35.7 % (37.0-47.0); HEMOGLOBIN 11.7 gm/dL (12.0-15.0); LYMPHOCYTES 21.3 % (24.0-44.0); MCH 32.5 pg (26.0-34.0); MCHC 32.8 g/dL (28.0-37.0); MONOCYTES 6.3 % (1.0-8.0); PLATELET COUNT 90 thou/uL (150-400); POLYS 71.7 % (36.0-66.0); RDW 19.1 % (10.5-14.5)
[2019-04-21 00:35] LABS: ALBUMIN 3.7 g/dL (3.4-5.0); CALCIUM 7.8 mg/dL (8.5-10.1); CREATININE 0.6 mg/dL (0.6-1.0); DIRECT BILIRUBIN 0.5 mg/dL (<0.1-0.2); TOTAL BILIRUBIN 1.8 mg/dL (<0.1-1.0); TOTAL PROTEIN 7.4 g/dL (6.4-8.2)
[2019-04-21 00:38] LABS: POTASSIUM 2.8 mmol/L (3.5-5.1)
[2019-04-21 00:41] LABS: ANISOCYTOSIS 2+; PLATELET ESTIMATE DECREASED
[2019-04-21 01:02] LABS: URINE BILIRUBIN NEGATIVE (Negative); URINE BLOOD NEGATIVE (Negative); URINE CLARITY CLOUDY; URINE COLOR YELLOW; URINE GLUCOSE-RANDOM* NEGATIVE (Negative); URINE KETONES NEGATIVE (Negative); URINE LEUKOCYTES-REFLEX NEGATIVE (Negative); URINE NITRITE-REFLEX NEGATIVE (Negative); URINE PROTEIN (DIPSTICK) 1+ (Negative)
[2019-04-21 01:10] LABS: AMP/METHAMP Negative (Negative); BARBITURATES Negative (Negative); BENZODIAZEPINES Negative (Negative); COCAINE Negative (Negative); METHADONE Negative (Negative); OPIATES Negative (Negative); PCP Negative (Negative)
[2019-04-21 01:11] LABS: BACTERIA-REFLEX >30 Many /HPF (None Seen); CRYSTALS None Seen /LPF (None Seen); HYALINE CASTS 0-3 Few /LPF (None Seen); MUCUS 0-3 Light strn/LPF (None Seen); SQUAMOUS 0-3 Few /LPF (0-3); URINE RBC None Seen /HPF (0-2); URINE WBC-REFLEX None Seen /HPF (0-5)
--- NOTE | 2019-04-21 06:05 | NUR ---
PT IS WELL KNOWN TO [facility]. POC REPLACING ELECTROLYTES. CIWA IN PLACE AND CURRENT SCORE IS 8. PT UP TO BATHROOM WITH STANDBY. ADMISSION, CARE PLAN, AND INTERVENTIONS ALL IN PLACE. PT UNHAPPY THAT SHE IS ON CLEAR LIQUID DIET. PT ALSO ASKING IF SHE WILL DC TODAY. WILL CONTINUE TO MONITOR.
[2019-04-21 10:22] LABS: MAGNESIUM 1.8 mg/dL (1.8-2.4); POTASSIUM 3.3 mmol/L (3.5-5.1)
--- NOTE | 2019-04-21 16:28 | NUR ---
pt is A&OX3,but pt is continuing IV fliud and potassium and mag replacement as order, pt has lorazepam 2mg iv q2-3 hr per CIWA scores at 10-12, pt has medication for N/V , pt's vs are stable, pt 's k+ 3.3, mg+2 1.8 at 1000am , pt will check in 1730pm.
[2019-04-21 17:44] LABS: MAGNESIUM 1.5 mg/dL (1.8-2.4); POTASSIUM 3.3 mmol/L (3.5-5.1)
[2019-04-22 03:43] VITALS: BP 139/106
[2019-04-22 04:06] LABS: HEMATOCRIT 30.4 % (37.0-47.0); HEMOGLOBIN 9.9 gm/dL (12.0-15.0); MCH 33.2 pg (26.0-34.0); MCHC 32.6 g/dL (28.0-37.0); RBC 2.98 mil/uL (4.20-5.00); RDW 18.1 % (10.5-14.5); WBC 2.9 thou/uL (4.0-11.0)
[2019-04-22 04:17] LABS: CALCIUM 7.6 mg/dL (8.5-10.1); CREATININE 0.6 mg/dL (0.6-1.0); MAGNESIUM 1.4 mg/dL (1.8-2.4); POTASSIUM 4.2 mmol/L (3.5-5.1)
--- NOTE | 2019-04-22 05:35 | NUR ---
PT STILL HAVING TREMORS AND NAUSEA. USING MEDICATION INTERVENTIONS TO HELP WITH ETOH SYMPTOMS. PT IS GETTING MORE AGITATED WITH STAFF AND MAKING DEMANDS ABOUT HER MEDICATIONS. CIWA'S HAVE BEEN 11 TO 12 Q4. IV PUMP WITH HIGH PRESSURE SOUNDED OFF 10X. EDUCATED PT ON POSITION FOR IV CANNULA, PT BLAMES PUMP FOR GOING OFF AND NOT HER. PT KEEPS ASKING ABOUT GOING HOME. POC WITH ELECTROLYTE PROTOCOL IN PLACE. REPLACED K+ 2X, AM LAB K+ 4.1. MAG WILL BE REPLACED THIS AM. WILL CONTINUE TO MONITOR AND ACCESS. HOURLY ROUNDING.
[2019-04-22 08:20] VITALS: BP 135/107
[2019-04-22 11:12] VITALS: BP 171/127
--- NOTE | 2019-04-22 13:53 | NUR ---
PT SIGNED AMA, PAYROLL HUMAN RESOURCES ASSISTANT, I WENT INTO THE ROOM TO ASSESS PT ORIENTATION, PT AXO X 4, PT COMMUNICATES UNDERSTANDING OF RISKS INVOLVED FOR LEAVING AGAINST MEDICAL ADVICE. DR ADRIANE SEGURA, I SPOKE TO HIM AND HE IS AWARE OF THIS INCIDENT. [employer] CALLED TO GET TRANSPORT, PT REFUSING TO WAIT FOR [employer] [employer] AND IS ADAMANT ON LEAVING AT THIS VERY SECOND. LUCHO RN WALKS HER DOWN.
--- NOTE | 2019-04-22 15:36 | NUR ---
Received consult for ETOH withdrawal plan. TICO reviewed chart and spoke with nursing and attending physician. Pt was admitted from home due to ETOH withdrawal. Pt know to SW from previous hospitalizations. Pt left AMA earlier today. Case closed.
--- NOTE | 2019-04-22 19:38 | NUR ---
pt is A&OX3, but pt is continuing iv fluid ,and K and mag replacment , pt has Lorazepam 2mg iv q2-3 hr per CIWA scores 10-13, pt's vs are stable, but pt requests to go home with DC order, pt has signed form for release from responsibility for discharge, RN has called to report pt goes home without order, RN has sent pt to in her friend car, and her friend will pick up attendant her to home.
== END 2019-04-22 13:54 | disposition left against medical advice (07) | DRG 433 ==
LOC: ER 23:16 → 3W 04-21 02:34 → EROBS 04-21 02:34 → 3W 04-21 03:36 → ENTRNSPT 04-22 13:48 → EDTRNSPTSTS 04-22 13:52 → 3W 04-22 13:54
PROVIDERS: Emergency Medicine; Nurse Practitioner Family; ADMIT Hospitalist
DX: K70.10 Alcoholic hepatitis without ascites (principal); G40.89 Other seizures; F10.129 Alcohol abuse with intoxication, unspecified; F32.9 Major depressive disorder, single episode, unspecified; F41.9 Anxiety disorder, unspecified; E80.4 Gilbert syndrome; K74.60 Unspecified cirrhosis of liver; F17.210 Nicotine dependence, cigarettes, uncomplicated; E87.6 Hypokalemia; Y90.9 Presence of alcohol in blood, level not specified; Z53.29 Procedure and treatment not carried out because of patient's decision for other reasons; F12.10 Cannabis abuse, uncomplicated; Z87.11 Personal history of peptic ulcer disease; Z88.0 Allergy status to penicillin; Z98.891 History of uterine scar from previous surgery; Z71.6 Tobacco abuse counseling
CPT/HCPCS: 10879

== ENCOUNTER 2019-04-29 19:56 | Emergency (ER) | payer OTHER ==
[~2019-04-29] VITALS: Ht 157.5 cm; Wt 54.4 kg
[2019-04-29 20:28] VITALS: BP 164/114
[2019-04-29 21:11] LABS: URINE BILIRUBIN NEGATIVE (Negative); URINE BLOOD NEGATIVE (Negative); URINE CLARITY CLEAR; URINE COLOR YELLOW; URINE GLUCOSE-RANDOM* NEGATIVE (Negative); URINE KETONES NEGATIVE (Negative); URINE LEUKOCYTES-REFLEX TRACE (Negative); URINE NITRITE-REFLEX NEGATIVE (Negative); URINE PROTEIN (DIPSTICK) 1+ (Negative); URINE SPECIFIC GRAVITY 1.015 (1.005-1.035); URINE UROBILINOGEN 0.2 E.U./dl (0.2-1.0)
[2019-04-29] MEDS ORDERED: NORCO 5-325 TA1 EAC1 PO (21:43)
[2019-04-29] MEDS ORDERED: LIDOCAINE VISC100 ML TOP (21:43)
[2019-04-29] MEDS ORDERED: ACYCLOVIR 800800 MG PO (21:43)
[2019-04-29 21:44] LABS: BACTERIA-REFLEX 1-9 Few /HPF (None Seen); CASTS None Seen /LPF (None Seen); CRYSTALS None Seen /LPF (None Seen); MUCUS 4-6 Moderate strn/LPF (None Seen); SQUAMOUS 4-10 Moderate /LPF (0-3); URINE RBC 0-2 Rare /HPF (0-2); URINE WBC-REFLEX 0-5 Rare /HPF (0-5)
== END 2019-04-29 21:59 | disposition home or self-care (01) ==
LOC: ER 19:56
PROVIDERS: Nurse Practitioner Family
DX: A60.00 Herpesviral infection of urogenital system, unspecified (principal); R10.2 Pelvic and perineal pain; F41.9 Anxiety disorder, unspecified; F17.210 Nicotine dependence, cigarettes, uncomplicated; Z88.0 Allergy status to penicillin; Z98.890 Other specified postprocedural states

== ENCOUNTER 2019-08-17 03:00 | Emergency (ER) | payer OTHER ==
[~2019-08-17] VITALS: Ht 157.5 cm; Wt 54.4 kg
[~2019-08-17 03:00] MED LIST changes: +ACYCLOVIR 800800 MG PO; +LIDOCAINE VISC100 ML TOP; +NORCO 5-325 TA1 EAC1 PO
[2019-08-17] MEDS ORDERED: UNISOM SLEEP AI25 MG PO (03:11)
[2019-08-17 03:37] LABS: ABSOLUTE NEUTROPHILS 5.1 thou/uL (1.4-8.2); BASOPHILS 0.2 % (0.0-2.0); EOSINOPHILS 0.3 % (0.0-3.0); HEMATOCRIT 34.6 % (37.0-47.0); HEMOGLOBIN 11.7 gm/dL (12.0-15.0); LYMPHOCYTES 14.4 % (24.0-44.0); MCH 30.8 pg (26.0-34.0); MCHC 33.8 g/dL (28.0-37.0); MCV 91.2 fL (80.0-100.0); MONOCYTES 11.7 % (1.0-8.0); PLATELET COUNT 159 thou/uL (150-400); POLYS 73.4 % (36.0-66.0); RBC 3.79 mil/uL (4.20-5.00); RDW 21.1 % (10.5-14.5)
[2019-08-17 03:47] LABS: ALBUMIN 4.1 g/dL (3.4-5.0); CALCIUM 8.5 mg/dL (8.5-10.1); CREATININE 1.2 mg/dL (0.6-1.0); DIRECT BILIRUBIN 0.3 mg/dL (<0.1-0.2); MAGNESIUM 1.4 mg/dL (1.8-2.4); TOTAL BILIRUBIN 0.9 mg/dL (<0.1-1.0); TOTAL PROTEIN 7.8 g/dL (6.4-8.2)
[2019-08-17 03:48] LABS: APTT 25.9 Seconds (24.5-32.8); INR 1.1; PROTIME 11.2 Seconds (9.3-11.4)
[2019-08-17] MEDS ORDERED: POTASSIUM20 PO (05:05)
[2019-08-17 06:57] VITALS: BP 111/74
== END 2019-08-17 06:58 | disposition home or self-care (01) ==
LOC: ER 03:00
PROVIDERS: Emergency Medicine
DX: R56.9 Unspecified convulsions (principal); F10.20 Alcohol dependence, uncomplicated; E87.6 Hypokalemia; E83.42 Hypomagnesemia; Z91.14 Patient's other noncompliance with medication regimen; F41.9 Anxiety disorder, unspecified; F17.210 Nicotine dependence, cigarettes, uncomplicated; Z79.899 Other long term (current) drug therapy; Z98.890 Other specified postprocedural states; Z88.0 Allergy status to penicillin; Y90.0 Blood alcohol level of less than 20 mg/100 ml

== ENCOUNTER 2019-10-18 21:49 | Inpatient (IN) | payer OTHER ==
[~2019-10-18] VITALS: Ht 157.5 cm; Wt 62.0 kg
[~2019-10-18 21:49] MED LIST changes: +POTASSIUM20 PO; +UNISOM SLEEP AI25 MG PO
[2019-10-18 21:59] VITALS: BP 168/114
[2019-10-18 23:13] LABS: ABSOLUTE NEUTROPHILS 2.7 thou/uL (1.4-8.2); BASOPHILS 0.7 % (0.0-2.0); EOSINOPHILS 0.4 % (0.0-3.0); HEMOGLOBIN 11.1 gm/dL (12.0-15.0); LYMPHOCYTES 18.4 % (24.0-44.0); MCH 35.6 pg (26.0-34.0); MCHC 33.8 g/dL (28.0-37.0); MCV 105.3 fL (80.0-100.0); PLATELET COUNT 206 thou/uL (150-400); POLYS 71.5 % (36.0-66.0); RBC 3.13 mil/uL (4.20-5.00); RDW 21.5 % (10.5-14.5); WBC 3.7 thou/uL (4.0-11.0)
[2019-10-18 23:25] LABS: CALCIUM 8.5 mg/dL (8.5-10.1); CREATININE 0.6 mg/dL (0.6-1.0); POTASSIUM 3.3 mmol/L (3.5-5.1)
[2019-10-18 23:26] LABS: ALBUMIN 3.4 g/dL (3.4-5.0); DIRECT BILIRUBIN 0.1 mg/dL (<0.1-0.2); TOTAL BILIRUBIN 0.8 mg/dL (0.2-1.0); TOTAL PROTEIN 6.6 g/dL (6.4-8.2)
[2019-10-19] VITALS (27 sets, daily range): BP systolic 128–171; BP diastolic 57–122
[2019-10-19 01:17] LABS: URINE BILIRUBIN NEGATIVE (Negative); URINE BLOOD NEGATIVE (Negative); URINE CLARITY SL CLOUDY; URINE COLOR YELLOW; URINE GLUCOSE-RANDOM* NEGATIVE (Negative); URINE KETONES NEGATIVE (Negative); URINE LEUKOCYTES-REFLEX NEGATIVE (Negative); URINE NITRITE-REFLEX NEGATIVE (Negative); URINE PROTEIN (DIPSTICK) TRACE (Negative); URINE SPECIFIC GRAVITY 1.015 (1.005-1.035); URINE UROBILINOGEN 0.2 E.U./dl (0.2-1.0)
--- NOTE | 2019-10-19 06:38 | NUR ---
Pt transferred to 240 from ED with dx of alcohol withdrawal, she is alert and oriented and asking for ativan and 3 orange juices. She walked to the bed from the cart, her gait was a bit unsteady. She was settled into the bed, a weight was gotten, and initial vitals were assessed. Report given to the day RN at this time.
[2019-10-19 07:05] LABS: CALCIUM 7.8 mg/dL (8.5-10.1); CREATININE 0.6 mg/dL (0.6-1.0)
--- NOTE | 2019-10-19 09:45 | NUR ---
RN assumed care at 0700. PT appeared resting in bed. Admission set complete. See chart for further details. PT complained of nausea, and headache 11/07. PT stated that she was having visual and auditory hallucinations. Stating she was reaching for water that wasn't there and speaking with her mother that was not in the room. PT scored 20 on her CIWA and 2 mg of IVP ativan was given per order. PT also received zofran for nausea with partial relief. High fall precautions are in place. Call light within reach. RN will continue to monitor.
[2019-10-19 16:27] LABS: POTASSIUM 3.4 mmol/L (3.5-5.1)
[2019-10-19 18:16] LABS: CALCIUM 7.3 mg/dL (8.5-10.1); CREATININE 0.7 mg/dL (0.6-1.0)
[2019-10-20] VITALS (10 sets, daily range): BP systolic 117–158; BP diastolic 80–114
--- NOTE | 2019-10-20 04:22 | NUR ---
ASSESSMENT: PT REMAIN ALERT AND ORIENT TIMES THREE. ABLE TO GET TO COMMODE WITH SBA AND HELP WITH LINES. VSS, AFEBRILE. SR-ST. PT DISPLAYED TREMORS AND STATE THAT SHE HAS A MONREAL. DENIES NAUSEA. PT REFUSED ALL FOOD OFFERS, STATING THAT SHE'S BE FINE UNTIL MORNING AFTER COMPLAINING THAT SHE WAS STARVING. NO BM THIS SHIFT. CIWA SCORE 10-15 THIS SHIFT. ATIVAN PO GIVEN PER ORDERS. PT IS KNOWN TO THIS RN AND SHE HAS A TRACK RECORD OF GOING AMA AFTER A COUPLE OF DAYS IN THE HOSPITAL. PT DID INQUIRE IF SHE WOULD BE LEAVING TODAY. NO SEIZURES NOTED NOR REPORTED THIS SHIFT. SLOW PROGRESS TOWARDS DC GOALS. WILL CONTINUE TO MONITOR.
[2019-10-20 08:29] LABS: CALCIUM 7.7 mg/dL (8.5-10.1); CREATININE 0.7 mg/dL (0.6-1.0); MAGNESIUM 1.1 mg/dL (1.8-2.4); POTASSIUM 3.6 mmol/L (3.5-5.1)
--- NOTE | 2019-10-20 11:50 | NUR ---
Pt requesting to have paperwork prepared so she can leave AMA. Pt states she is feeling better and has a sick child at home. States her boyfriend can leave work and come and pick her up. Pt encouraged to stay in the hospital. Dr Kim presented to the patient that she is at risk for seizure if she leaves today when he made rounds this morning. I discussed with the patient that her Magnesium level is low and it is currently being replaced. Dr Kim paged to notify of pt's plans to leave and nursing supervisor ticket sales, Shey also paged to inform of pt's plans to leave. ICU charge nurse Caro Foley also informed of plans to leave AMA.
--- NOTE | 2019-10-20 12:18 | NUR ---
Dr Kim returned call and said to have pt sign AMA form prior to leaving. Pt signed AMA form and taken by wheelchair to ED entrance where her boyfriend, Johnnie Perales waiting to pick her up. IV was dc'd prior to leaving ICU. Pt assisted with dressing in her shorts and T-shirt. Pt has tennis shoes and elected not to put them on. Pt has yellow non-skid socks in place. Pt sent home with her cell phone and framing manager and wash basin/toiletries. States her mother is at home and is sick with lung cancer. Pt temp prior to leaving 98.6. Sinus tachycardia- rate 110's. Discharge time 1218. Nursing belt and link shop supervisor aware of pt's plans to leave AMA.
== END 2019-10-20 12:18 | disposition left against medical advice (07) | DRG 641 ==
LOC: ER 21:49 → EROBS 10-19 05:07 → ICU 10-19 06:05
PROVIDERS: Emergency Medicine; Nurse Practitioner Family; ADMIT Hospitalist; ATTEND Hospitalist
DX: E86.0 Dehydration (principal); F10.239 Alcohol dependence with withdrawal, unspecified; K74.60 Unspecified cirrhosis of liver; E87.6 Hypokalemia; E87.2 Acidosis; F41.9 Anxiety disorder, unspecified; F19.11 Other psychoactive substance abuse, in remission; F31.9 Bipolar disorder, unspecified; Y90.9 Presence of alcohol in blood, level not specified; R56.9 Unspecified convulsions; K70.0 Alcoholic fatty liver; F17.210 Nicotine dependence, cigarettes, uncomplicated; F10.229 Alcohol dependence with intoxication, unspecified; Z98.891 History of uterine scar from previous surgery; Z88.0 Allergy status to penicillin; Z79.899 Other long term (current) drug therapy
CPT/HCPCS: 10078

== ENCOUNTER 2019-11-14 18:50 | Emergency (ER) | payer OTHER ==
[~2019-11-14] VITALS: Ht 157.5 cm; Wt 54.4 kg
[2019-11-14] MEDS ORDERED: LIDOCAINE VISC100 ML PO (19:30)
[2019-11-14 19:44] LABS: URINE BILIRUBIN NEGATIVE (Negative); URINE BLOOD TRACE (Negative); URINE CLARITY SL CLOUDY; URINE COLOR YELLOW; URINE GLUCOSE-RANDOM* NEGATIVE (Negative); URINE KETONES TRACE (Negative); URINE LEUKOCYTES-REFLEX 3+ (Negative); URINE NITRITE-REFLEX NEGATIVE (Negative); URINE PROTEIN (DIPSTICK) 3+ (Negative); URINE SPECIFIC GRAVITY <= 1.005 (1.005-1.035)
[2019-11-14 19:47] LABS: CASTS None Seen /LPF (None Seen); CRYSTALS None Seen /LPF (None Seen); SQUAMOUS 0-3 Few /LPF (0-3); URINE RBC 0-2 Rare /HPF (0-2); URINE WBC-REFLEX >25 Many /HPF (0-5)
[2019-11-14 19:48] LABS: BACTERIA-REFLEX 1-9 Few /HPF (None Seen)
[2019-11-14] MEDS ORDERED: FLAGYL500 M1 PO (22:53)
[2019-11-14] MEDS ORDERED: VALACYCLOVIR500 MG PO (22:53)
[2019-11-14 23:16] VITALS: BP 152/113
== END 2019-11-14 23:24 | disposition home or self-care (01) ==
LOC: ER 18:50
PROVIDERS: Emergency Medicine
DX: A60.04 Herpesviral vulvovaginitis (principal); N76.0 Acute vaginitis; R11.10 Vomiting, unspecified; R25.1 Tremor, unspecified; F41.9 Anxiety disorder, unspecified; F31.9 Bipolar disorder, unspecified; F17.210 Nicotine dependence, cigarettes, uncomplicated; Z88.0 Allergy status to penicillin; Z98.890 Other specified postprocedural states; Z79.899 Other long term (current) drug therapy

== ENCOUNTER 2019-11-23 14:57 | Inpatient (IN) | payer OTHER ==
[~2019-11-23] VITALS: Ht 162.6 cm; Wt 76.2 kg
[~2019-11-23 14:57] MED LIST changes: +FLAGYL500 M1 PO; +LIDOCAINE VISC100 ML PO; +VALACYCLOVIR500 MG PO
[2019-11-23 14:59] VITALS: BP 144/99
[2019-11-23 15:29] LABS: ABSOLUTE NEUTROPHILS 8.2 thou/uL (1.4-8.2); BASOPHILS 0.4 % (0.0-2.0); EOSINOPHILS 0.2 % (0.0-3.0); HEMATOCRIT 31.4 % (37.0-47.0); HEMOGLOBIN 10.8 gm/dL (12.0-15.0); MCH 33.3 pg (26.0-34.0); MCHC 34.4 g/dL (28.0-37.0); MONOCYTES 9.2 % (1.0-8.0); PLATELET COUNT 684 thou/uL (150-400); POLYS 81.2 % (36.0-66.0); RBC 3.24 mil/uL (4.20-5.00); RDW 21.8 % (10.5-14.5); WBC 10.1 thou/uL (4.0-11.0)
[2019-11-23 15:44] LABS: ALBUMIN 2.6 g/dL (3.4-5.0); CALCIUM 8.9 mg/dL (8.5-10.1); CREATININE 0.6 mg/dL (0.6-1.0); TOTAL BILIRUBIN 0.6 mg/dL (0.2-1.0); TOTAL PROTEIN 7.5 g/dL (6.4-8.2)
[2019-11-23 15:46] LABS: POTASSIUM 2.4 mmol/L (3.5-5.1)
[2019-11-23 18:04] VITALS: BP 148/104
[2019-11-23 18:29] VITALS: BP 144/101
[2019-11-23 19:02] VITALS: BP 141/98
[2019-11-23 22:00] LABS: URINE BILIRUBIN NEGATIVE (Negative); URINE BLOOD TRACE (Negative); URINE CLARITY SL CLOUDY; URINE COLOR YELLOW; URINE GLUCOSE-RANDOM* 2+ (Negative); URINE KETONES NEGATIVE (Negative); URINE NITRITE-REFLEX NEGATIVE (Negative); URINE PROTEIN (DIPSTICK) NEGATIVE (Negative); URINE SPECIFIC GRAVITY 1.015 (1.005-1.035)
[2019-11-23 22:01] LABS: URINE LEUKOCYTES-REFLEX 2+ (Negative)
[2019-11-23 22:10] LABS: AMP/METHAMP Negative (Negative); BARBITURATES Negative (Negative); BENZODIAZEPINES Negative (Negative); COCAINE Negative (Negative); METHADONE Negative (Negative); OPIATES Negative (Negative); PCP Negative (Negative)
[2019-11-23 22:19] LABS: CASTS None Seen /LPF (None Seen); CRYSTALS None Seen /LPF (None Seen); SQUAMOUS 4-10 Moderate /LPF (0-3); URINE WBC-REFLEX >25 Many /HPF (0-5)
[2019-11-23 22:21] LABS: URINE RBC 0-2 Rare /HPF (0-2)
[2019-11-23 22:22] LABS: BACTERIA-REFLEX >30 Many /HPF (None Seen)
[2019-11-24 01:35] LABS: HEMATOCRIT 30.6 % (37.0-47.0); HEMOGLOBIN 10.2 gm/dL (12.0-15.0); MCH 32.4 pg (26.0-34.0); MCHC 33.4 g/dL (28.0-37.0); MCV 97.2 fL (80.0-100.0); RBC 3.15 mil/uL (4.20-5.00); RDW 21.8 % (10.5-14.5); WBC 12.3 thou/uL (4.0-11.0)
--- NOTE | 2019-11-24 01:40 | NUR ---
ASSUMED CARE FROM DAY SHIFT PT LYING IN BED CIWA 10 MEDICATION GIVEN ORDERED, PT UP TO BSC ABLE COLLECT URINE SAMPLE AND MARGARET RITCHIE AND SENT TO LAB. PT C/O GENERALIEZED PAIN. DRYWALL STRIPPER SHOWS ST 110 AND 140 WHEN TO TO BSC. TEMP 101.2 , DISCUSSED PLAN OF CARE PT VERBALIZED UNDERSTANDING AND AGREEABLE.
[2019-11-24 01:44] LABS: CALCIUM 7.9 mg/dL (8.5-10.1); CREATININE 0.6 mg/dL (0.6-1.0); MAGNESIUM 2.1 mg/dL (1.8-2.4)
[2019-11-24 01:45] LABS: POTASSIUM 4.1 mmol/L (3.5-5.1)
[2019-11-24 04:00] VITALS: BP 123/76
[2019-11-24 04:25] VITALS: BP 141/105
[2019-11-24 08:30] VITALS: BP 139/103
[2019-11-24 11:53] VITALS: BP 151/115
[2019-11-24 16:04] VITALS: BP 134/101
--- NOTE | 2019-11-24 17:46 | NUR ---
ASSUMED CARE PT SHIFT CHANGE. ASSESSMENTS CHARTED. CIWA ASSESSMENTS CHARTED. PT EXHIBITING ANXIETY ON/OFF THIS SHIFT. BP HR ELEVATED- PHYSICIAN NOTIFIED, ORDERS RECEIVED. C/O PAIN GENERALIZED. MANAGED WITH PO PAIN MEDS. NEURO CONSULTED FOR WEAKNESS-REFER TO PHYSICIAN NOTE. PSYCH CONSULTED- REFER TO PHYSICIAN NOTE. PT FIANCE VISITED WITH PT TODAY. PT UP TO COMMODE TOLERATING FAIR. ATIVAN/PAIN MEDS GIVEN NEEDED. PT CURRENTLY RESTING IN BED WITH FIANCE IN ROOM. FREQUENT CHECKS ON PT. WILL CONT TO MONITOR.
[2019-11-24 18:11] LABS: INR 1.3; PROTIME 13.3 Seconds (9.3-11.4)
[2019-11-24 21:42] VITALS: BP 140/101; BP 140/95
[2019-11-25 04:00] VITALS: BP 146/79
--- NOTE | 2019-11-25 06:00 | NUR ---
ASSUMED CARE FROM DAY SHIFT ,PT SITTING UP IN BED TALKING ON CELL PHONE, C/O PAIN , REQUESTING PAIN MEDIATION AND ATIVAN. PT ASSESSED AT 2100 CIWA 5 , MEDIATION GIVEN AT THAT TIME. PT REQUESTING BOX LUNCH. IV FLUIDS INFUSING WELL, NO N/V NOTED, LARGE AMOUNT OF ALICE URINE. PT MEDICATED THROUGHOUT THE SHIFT FOR CIWA AND AGITATION AND PAIN. CARDIC MONITOR SHOWS ST 120-140 .
[2019-11-25 06:46] LABS: HEMOGLOBIN 9.8 gm/dL (12.0-15.0); MCH 33.2 pg (26.0-34.0); MCHC 33.8 g/dL (28.0-37.0); MCV 98.3 fL (80.0-100.0); RBC 2.95 mil/uL (4.20-5.00); WBC 11.6 thou/uL (4.0-11.0)
[2019-11-25 07:08] LABS: CALCIUM 8.6 mg/dL (8.5-10.1); CREATININE 0.6 mg/dL (0.6-1.0); MAGNESIUM 1.3 mg/dL (1.8-2.4); POTASSIUM 4.7 mmol/L (3.5-5.1)
--- NOTE | 2019-11-25 07:53 | EKG ---
[facility] [place] [address] ELECTROCARDIOGRAM REPORT Name: ELVIRA STILL Room #: 207-P ADM IN M.R.#: [id number] Admission: 11/23/19 Attend Phys: Dmitriy Montez MD Discharge: Date of : 88 Report #: [id number] THIS REPORT FOR: cc: MELLY - Angelita family physician/PCP MELLY - Angelita family physician/PCP Sherwin Verduzco MD [facility] ~ THIS REPORT FOR: //name// [facility] ED Test Date: 2019-11-23 Test Time: 15:09:59 Pat Name: ELVIRA STILL Department: Room: 207 Gender: F Research And Development Specialist: CJ : 1990 Requested By: Huber Cazares Order Number: [id number] MD: Sherwin Verduzco Measurements Intervals Bernie Rate: 120 P: 64 IA: 141 QRS: 69 QRSD: 107 T: 53 QT: 375 QTc: 530 Interpretive Statements Sinus tachycardia Poor R wave progression Prolonged QT interval Compared to ECG 01/08/2018 22:28:37 No significant change was found Electronically Signed On 11-25-2019 7:52:48 CDT by Sherwin Verduzco [email or web address] <ELECTRONICALLY SIGNED> By: Sherwin Verduzco MD, [facility] 11/25/19 0752 [id number] Sherwin Verduzco MD, [facility] /EPI
[2019-11-25 08:00] VITALS: BP 149/112
--- NOTE | 2019-11-25 17:34 | NUR ---
PT CARE ASSUMED APPROX 0700. ASSESSMENT CHARTED. PT REPORTS CONSTANT PAIN. DENIES SOA. HR ELEVATED. VS OTHERWISE STABLE. MULTIPLE DIAGNOSTIC STUDIES DONE THIS SHIFT WITH MORE ORDERED AND SCHEDULED TO COMPLETE TOMORROW FOR DIAGNOSING SOURCE OF PAIN. POSTULES NOTED ON PT'S GROIN, BLE AND AREA BENEATH BREASTS. CULTURED AREA ON LEFT LEG. FOAM IN PLACE AT THIS TIME. CLINICAL UPDATES GIVEN TO PT'S MOTHER AND SPOUSE. SPOUSE AT BEDSIDE. MANAGING ETOH WITHDRAWL PER CIWA. DR PERES AWARE THAT PT'S ANXIETY AND PAIN FROM UNDIAGNOSED SHOULDER ISSUE MAY BE IMPACTING CIWA SCORE. PT RESTING AT THIS TIME. NO DISTRESS NOTED.
--- NOTE | 2019-11-25 19:37 | NUR ---
PT IS NOW EDUCATED AND UPDATED REGARDING POC. IN [facility] PRESSURE ROOM TO ENFORCE NEW AIRBORNE/CONTACT ISOLATION/PRECAUTIONS. NO DISTRESS NOTED. RECEIVING NURSE DENIES QUESTIONS OR CONCERNS REGARDING POC.
--- NOTE | 2019-11-25 19:51 | NUR ---
NOSE AND THROAT CULTURE COLLECTED IN [facility] PER LAB'S REQUEST.
--- NOTE | 2019-11-26 04:35 | NUR ---
PROGRESS PT A/O VERY TEARFUL MOVED TO AIRBORNE ISOLATION ROOM IV ANTIBIOTICS GIVEN ORDERED SOME LATE FROM 1800. PT REPORTS GENERALIZED PAIN AND INCREASED PAIN TO BOTH SHOULDERS, RASH HAS SPREAD TO ARM PITS PT REPORTS IT HURTS AT A 10/10 HYDROCODONE AND ATIVAN GIVEN. EYES SOAKED WITH WARM WASH CLOTHS AND DROPS INSTILLED ORDERED. PT VOIDING QS DARK YELLOW URINE. SWABS NOT OBTAINED THE RIGHT SWABS WERE UNKNOWN AND WAITING FOR DAY SHIFT TO CLARIFY WITH MICROBIOLOGY TO OBTAIN CORRECT SWAB. TELE READING ST VSS CONTINUE TO MONITOR
[2019-11-26 06:00] LABS: HEMATOCRIT 27.7 % (37.0-47.0); HEMOGLOBIN 9.2 gm/dL (12.0-15.0); MCH 33.4 pg (26.0-34.0); MCHC 33.4 g/dL (28.0-37.0); MCV 99.9 fL (80.0-100.0); RBC 2.77 mil/uL (4.20-5.00); RDW 21.3 % (10.5-14.5); WBC 9.8 thou/uL (4.0-11.0)
[2019-11-26 07:03] LABS: CREATININE 0.5 mg/dL (0.6-1.0); MAGNESIUM 1.4 mg/dL (1.8-2.4); POTASSIUM 4.9 mmol/L (3.5-5.1)
[2019-11-26 08:42] VITALS: BP 149/104
[2019-11-26 09:07] LABS: HEPATITIS B SURFACE AG Negative (Negative); HEPATITIS C VIRUS AB <0.1 (0.0-0.9)
--- NOTE | 2019-11-26 10:25 | NUR ---
ASSUMED CARE OF PT AT SHIFT CHANGE, REPORTS OF SWABS/CULTURES NEEDED YET UNSURE WHERE, CALLED LAB TO ASK WHICH COLOR OF SWABS NEEDED, THEY NEEDED ME TO TALK TO MICRO. GUEST SERVICE MANAGER CONSULT PLACED SO ASKED ABOUT THOSE SUPPLIES NEEDED, LAB SAID NO ORDER; WAS TRYING TO PLAN IN ADVANCE. PT IS A&0X4, UP AD PIERO; MOVING SLOW D/T LINES. GREAT PAIN IN GROIN, ANXIETY D/T ALL, ASKED TO SMOKE; DECLINED HER AND ASKED IF SHE'D LIKE FOR ME TO ASK FOR A NICOTINE PATCH; SHE DECLINED. EDUCATION GIVEN, DRASTICALLY, ON IF A CIGG IS LIT UP ANYWHERE ON THE FLOOR THE 02 WOULD BLOW UP. SHE WAS SHOCKED. DIDNT SEE ANY CIGG OUTWARDLY WITH BELONGINGS. USES CALL LIGHT FOR ALL NEEDS. FAXED MRI SCREENING AND THEN THEY CALLED TO SAY IT'S CANCELLED AND SHE CAN PURSUE OUTSIDE OF HOSPITALIZATION. SCANNER MISSING IN ROOM AND EMAR SHOWS THE 'DOCUMENT' BUTTON GRAYED OUT. CANNOT WHEEL COMPUTER, ONCE FOUND CANNOT GO IN TO ROOM W/CONTACT AND AIRBORNE PRECAUTIONS. WILL CONTACT RX TO LET THEM KNOW AND WATCH AND CLOCK REPAIR CLERK PUT IN AN ORDER TO CHECK OUT LACK OF SCANNER IN ROOM
[2019-11-26 13:02] VITALS: BP 155/114
--- NOTE | 2019-11-26 14:27 | NUR ---
IVF COMPATIBILITY: CALLED RX AND ACYCLOVIR, FLAGYL, ROCEPHIN, AND DOXY ALL ARE SAFE TO RUN WITH HER IVF OF NS W/20K+
--- NOTE | 2019-11-26 16:31 | 2DMMODE ---
[facility] [address] [place] [address] 2 D/M-MODE ECHOCARDIOGRAM Name: ELVIRA STILL Room #: 200-I ADM IN M.R.#: [id number] Admission: 11/23/19 Attend Phys: Dmitriy Montez MD Discharge: Date of : 88 Report #: [id number] THIS REPORT FOR: cc: FAM - No family physician/PCP FAM - No family physician/PCP Jignesh White MD ~ APPROVED REPORT Study performed: 11/26/2019 15:04:38 EXAM: Comprehensive 2D, Doppler, and color-flow Echocardiogram Patient Location: Bedside Room #: 200 BSA: 1.74 HR: 115 bpm BP: 149/104 mmHg Rhythm: Tachycardia Other Information Study Quality: Adequate Indications Hypertension/HDD R^O Endocarditis. Patient in Air Born isolation. 2D Dimensions IVSd: 12.76 (7-11mm) LVOT Diam: 21.13 (18-24mm) LVDd: 40.78 mm PWd: 12.72 (7-11mm) Ascending Ao: 30.10 (22-36mm) LVDs: 25.44 (25-40mm) Aortic Root: 31.75 mm IVC: 12.00 mm Aortic Valve AoV Peak Agus.: 1.34 m/s AO Peak Gr.: 7.18 mmHg LVOT Max P.67 mmHg LVOT Max V: 1.38 m/s EDDIE Vmax: 3.62 cm2 Pulmonary Valve PV Peak Agus.: 1.04 m/s PV Peak Gr.: 4.33 mmHg Left Ventricle The left ventricle is normal size. There is normal LV segmental wall [facility] [email or web address] [address] 2 D/M-MODE ECHOCARDIOGRAM Name: ELVIRA STILL Room #: 200-I ADM IN ..#: [id number] Admission: 11/23/19 Attend Phys: Dmitriy Montez, Discharge: Date of : 88 Report #: [id number] motion. Mild concentric left ventricular hypertrophy. The left ventricular systolic function is normal. The left ventricular ejection fraction is within the normal range. LVEF is 60-65%. This study is not technically sufficient to allow evaluation of the LV diastolic function. Right Ventricle The right ventricle is normal size. The right ventricular systolic function is normal. Atria The left atrium size is normal. The right atrium size is normal. Aortic Valve The aortic valve is normal in structure. No aortic regurgitation is present. There is no aortic valvular stenosis. Mitral Valve The mitral valve is normal in structure. There is no mitral valve regurgitation noted. No evidence of mitral valve stenosis. Tricuspid Valve The tricuspid valve is normal in structure. There is no tricuspid valve regurgitation noted. Pulmonic Valve The pulmonary valve is normal in structure. There is no pulmonic valvular regurgitation. Great Vessels The aortic root is normal in size. IVC is normal in size and collapses >50% with inspiration. Pericardium There is no pericardial effusion. <Conclusion> The left ventricle is normal size. LVEF is 60-65%. The aortic valve is normal in structure. The mitral valve is normal in structure. The tricuspid valve is normal in structure. [facility] [address] [place] [address] 2 D/M-MODE ECHOCARDIOGRAM Name: ELVIRA STILL Room #: 200-I [facility] IN [facility].#: [id number] Admission: 11/23/19 Attend Phys: Dmitriy Montez, Discharge: Date of : 88 Report #: [id number] The pulmonary valve is normal in structure. There is no pericardial effusion. <ELECTRONICALLY SIGNED> By: Jignesh White MD 11/26/19 163 [id number] Jignesh White MD /INF
[2019-11-26 17:45] VITALS: BP 143/103
[2019-11-26 20:06] LABS: SYPHILIS AB Non Reactive (Non Reactive)
[2019-11-26 22:26] VITALS: BP 158/107
--- NOTE | 2019-11-27 04:57 | NUR ---
ASSESSMENTS CHARTED, MEDS GIVEN CHARTED. PATIENT IN ISOLATION IN HER ROOM DURING SHIFT. UNDER CONTACT AND DROPLET PRECAUTIONS. PT ALERT AND ORIENTED. BECOMES TACHY WHEN UP OUT OF BED IN THE 150'S. ON ROOM AIR. UP AT PIERO IN ROOM. PATIENT HAS RASH ON TRUNK, EXTREMITIES, AND HEAD. CONJUNCTIVITIS. C/O PAIN IN JOINTS, LEFT LEG AND LEFT FOOT. PATIENT USED SITZ BATH ONCE DURING SHIFT. FALL PRECAUTIONS IN PLACE.
[2019-11-27 05:16] LABS: CREATININE 0.6 mg/dL (0.6-1.0); MAGNESIUM 1.6 mg/dL (1.8-2.4); POTASSIUM 4.6 mmol/L (3.5-5.1)
[2019-11-27 05:28] VITALS: BP 129/92
[2019-11-27 06:07] LABS: HEMATOCRIT 30.6 % (37.0-47.0); MCH 32.5 pg (26.0-34.0); MCHC 32.5 g/dL (28.0-37.0); MCV 99.8 fL (80.0-100.0); RBC 3.07 mil/uL (4.20-5.00); RDW 21.8 % (10.5-14.5); WBC 12.4 thou/uL (4.0-11.0)
--- NOTE | 2019-11-27 11:29 | NUR ---
08:30-PT. C/O PAIN IN LEFT LEG AND SHOULDER PAIN A 9/10 , WILL MEDICATE FOR SUCH. ALSO NOTED SEVERE TREMOR'S AND WOULD SCORE HER HIGH SHE APPEARS TO BE DETOXING, PER HEADACHE, NAUSEA, ANXIETY, ETC. DISCUSSED SUCH WITH DR. LA THIS AM WELL. PT. BECOMES VERY TACHYCARDIC WITH AMBULATION TO THE RESTOOM. REASSURED HER WE WILL MANAGE HER CARE TODAY AND FOCUS ON HER PAIN RELIEF AND ANTIBOTIC THERAPY THE MOST TODAY. ORDER FOR PICC LINE INSERTION OBTAINED WELL HER EJ IS POSITIONAL WITH MOVEMENT AND HEAD TITLTING TURNS IT OFF. CONJUCTIVITIS IS SEVERE WITH CRUSTING OVER HER EYELIDS, GAVE HER WARM WASH CLOTH TO CLEAN HER EYES WITH AND DROPS ADMINSTERED WELL. PT. DENIES ANY CP, ANY SOB.IV ON HER LEFT BREAST TO BE REMOVED IT IS RED AT SITE AND NOT FLUSHIN THIS AM.
--- NOTE | 2019-11-27 12:24 | NUR ---
PICC LINE NURSE AT BEDSIDE, CONSENT OBTAINED VERBAL APPROVAL PER PT, RISKS EXPLAINED AND DISCUSSED, SHE SAID SHE "KNOWS I NEED AN NEW IV". PT.'S SHIVERING HAS IMPROVED, TREMORS HAVE DECREASED WELL AT THIS TIME. MEDICATION FOR DT'S GIVEN AT THIS TIME.
--- NOTE | 2019-11-27 13:18 | NUR ---
Patient admits with ETOH withdraw, conjunctiitis. Patient is in droplet precautions. Attempted to call patient in room no answer. Sp with RN. Patient with tremors and hallucinating. Patient has rec health resource guide in past. Patient will be unable to discuss dc treatment options at this time per RN. Patient resides with family. consumes approx a pint of vodka. Casemgt following to assist with dc planning.
--- NOTE | 2019-11-27 13:51 | EKG ---
[facility] [place] [address] ELECTROCARDIOGRAM REPORT Name: ELVIRA STILL Room #: 200-I ADM IN M.R.#: [id number] Admission: 11/23/19 Attend Phys: Dmitriy Montez MD Discharge: Date of : 88 Report #: [id number] THIS REPORT FOR: cc: MELLY - Angelita family physician/PCP MELLY - No family physician/PCP Aaron Whyte MD ~ THIS REPORT FOR: //name// [facility] Test Date: 2019-11-27 Test Time: 10:14:55 Pat Name: ELVIRA STILL Department: Room: 200 I Gender: F Supervisor Molding: RACHEL : 1990 Requested By: Dmitriy Montez Order Number: [id number] MD: Aaron Whyte Measurements Intervals Wilson Rate: 111 P: 60 [place]: 141 QRS: 88 QRSD: 97 T: 55 QT: 340 QTc: 462 Interpretive Statements Sinus tachycardia Borderline T wave abnormalities Compared to ECG 11/23/2019 15:09:59 T-wave abnormality now present Poor R-wave progression no longer present Prolonged QT interval no longer present Electronically Signed On 11-27-2019 13:50:46 CDT by Aaron Whyte [email or web address] <ELECTRONICALLY SIGNED> By: Aaron Whyte MD 11/27/19 1350 1014 1014 Aaron Whyte MD /EPI
--- NOTE | 2019-11-27 16:33 | NUR ---
PT. ATE HER LUNCH AMD IS RESTING NOW, CALMER OVERALL. PICC LINE IS FLUSHING WELL WTH BLOOD RETURN. DENIES SOB. TREMORS THROUGHOUT THE DAY AND HAVE GIVEN HER ATIVAN Q2 HOURS TODAY FAIRLY REGULARLY TO MANAGE HER DT'S. NOT HALLUCINATING MUCH CURRENTLY.
--- NOTE | 2019-11-27 17:29 | NUR ---
VAT CONSULTED FOR A PICC FOR MULTIPLE ABX AND ELECTROLYTES PT IS IN WD FROM ETOH. A 4FRDBPICC PLACED RUABRACHIAL AND TIP AT THE CAJ PER CXR. PLEASE SEE INSERTION NI FOR DETAILS
[2019-11-27 22:52] VITALS: BP 150/108
--- NOTE | 2019-11-28 02:54 | NUR ---
ASSESSMENT COMPLETED. PT EASILY GETS WORKED UP AND TEARFUL. SHE IS ALSO IN ALOT OF PAIN TO ALMOST "EVERYWHERE" CONSEQUENTLY CAUSING HEART RATE TO JUMP UP TO THE 150'S WITH ACTIVITY-JAZMYNE GOING TO THE BATHROOM. I OBSERVED HER WALKING TO THE BATHROOM, IT IS SO UNSAFE, SO I PROVIDED A BSC FOR THE REST OF THE NOC.GETTING MORPHINE AND NORCO FOR PAIN.PAIN IS IN THE LEFT FOOT, BACK, BOTH SHOULDERS AND AREAS WITH THE HERPES RASH.PT ASKS FOR LORAZEPAM FREQUENTLY. SHE HAS A LOW GRADE FEVER. DENIES SOA OR CHEST PAIN. PT OBSERVED ON THE PHONE OR SLEEPING AT TIMES. RESTING HR IS 110-120 RANGE.SHE LIKES SODA.DENIES N/V. IV ABTS GIVEN. EYES STILL LOOK RED AND CRUSTY.VOIDS ADEQUATELY.WILL CONTINUE WITH POC TILL EOS.
[2019-11-28 03:31] VITALS: BP 156/112
[2019-11-28 08:07] LABS: HIV ANTIBODY Non Reactive (Non Reactive)
[2019-11-28 08:20] VITALS: BP 151/106
[2019-11-28 11:20] VITALS: BP 145/99
--- NOTE | 2019-11-28 14:25 | NUR ---
PT CARE ASSUMED APPROX 0700. ASSESSMENTS CHARTED. PT DENIES SOA. REPORTS CONSTANT PAIN TO PRIMARILY HER SHOULDERS BUT REPORTS "ALMOST EVERYWHERE" WELL. PAIN MEDS GIVEN PER POC BUT PT ALWAYS SCORES PAIN AT 10/10. HER DOCTORS ARE AWARE. HR ELEVATED. VITAL SIGNS OTHERWISE STABLE WITHIN NORMAL LIMITS. PT ISOLATION DC'D BY DR BROWN PER JAMAL RN. POSTULE SPECIMENS RE-ENTERED FOR COLLECTION. PASSED ON TO RECEIVING NURSE AT THIS TIME. PT CARE TRANSFERRED AT APPROX 1410. RECEIVING NURSE DENIES QUESTIONS OR CONCERNS REGARDING POC AND INCOMPLETE TASKS ON POC. PT OFF UNIT AT THIS TIME.
[2019-11-28 15:00] VITALS: BP 140/103
[2019-11-28 15:03] LABS: CLARITY CLOUDY; COLOR LIGHT RED; SOURCE RIGHT SHOULDER; TOTAL VOLUME 8 mL
[2019-11-28 15:16] LABS: BF CRYSTALS No Crystals seen
[2019-11-28 15:54] LABS: BF NUCLEATED CELLS 51321 /mm3; BF RBC 27901 /mm3
--- NOTE | 2019-11-28 16:16 | NUR ---
MEDICATED PT FOR PAIN AND PICC LINE INSERTION NOW , CONSENT SIGNED AND PRE PROCEDURE CHECKLIST PERFORMED AND VERIFIED.
--- NOTE | 2019-11-28 17:05 | NUR ---
VASCULAR ACCESS CONSULTED TO REINSERT PICC AFTER PT PULLED PREVIOUS PICC OUT THIS AM. DISCUSSED NEED TO REPLACE PICC, PT VERY TEARFUL AND CRYING WITH BILATERAL ARM PAINS. ATTEMPTED JFEF PICC IN CEPHALIC AND BASILIC VESSELS. UNABLE TO PASS GUIDEWIRE PAST SHOULDER AND PT UNABLE TO EXTEND ARM TO ATTEMPT REPOSITIONING OF PICC LINE. LINE TRIMMED TO 11CM PLACED MIDLINE AND LABELED MIDLINE. SPOKE TO RAFIQ GARZA TO NOTIFY NOT PICC BUT MIDLINE SO ALL MEDS NEED TO BE COMPATABLE
[2019-11-28 17:43] LABS: BF MACROPHAGE 5 %; BF NEUTROPHILS 88 %
--- NOTE | 2019-11-28 18:42 | NUR ---
ASSUMED CARE AT 1400. ALERT X4, FROM HOME, FIANCE BEDSIDE. PAIN MANAGED WITH MEDS. DIFFICULTY MOVING ARMS. SWELLING TO BILAT LE. UP TO COMMODE WITH STAND BY. UA AND CULTERS OF PUSTULES SENT TO LAB. NEW CENTRAL LINE PLACED. SLOWLY PROGESSINY. CALLS FOR ASSISTANCE.
[2019-11-28 20:51] VITALS: BP 144/109
[2019-11-29 06:23] VITALS: BP 144/105
[2019-11-29 07:30] VITALS: BP 144/101
--- NOTE | 2019-11-29 07:32 | NUR ---
ASSESSMENT DOCUMENTED.PT BEEN RESTING IN ACUTE DISTRESS.A/OX4,PT FRUSTARTED AND VERBALIZES BEING WORRIED OF WHAT IS HAPPENING TO HER BODY REFFERING TO RASH/PUSTULES AND PAIN TO JOINTS,SWELLING TO HER LEGS AND BEING NOT MEDICALLY STABLE.EMOTIONAL SUPPORT PROVIDED.C/O GENERALIZED PAIN WITH PAIN BEING WORSE TO SHOULDERS,ARMS AND LEGS,RATING PAIN AT 10/10 ON PAIN SCALE.PAIN PARTIALLY CONTROLLED WITH PAIN MEDS ORDERED.HAD LOW GRADE FEVER,IVF INFUSINGS.ON ANTIBIOTICS/ANTIFUNGALS AND ANTIVIRAL,TOLERATING.VOIDS VIA BSC.LARGE AMOUNT OF UO.SINUS TACHY ON MONITOR.RA W/O RESP DISTRESS.POC IS TO CONTINUES WITH THE CURRENT TX.WILL CONT TO MONITOR PER POC.
--- NOTE | 2019-11-29 09:21 | NUR ---
Assess for length of stay. Admit with pain, rash, discharge, joint swelling. ED following and managing antibiotic coverage. +etoh use. Wt is stable around 120 lb for past few years. Eating 50-100% of meals. On vitamin and thiamine supplementation. Presents at low nutrition risk
[2019-11-29 11:15] VITALS: BP 152/95
--- NOTE | 2019-11-29 14:18 | NUR ---
Case discussed with the care team. No weekend dc anticipated. Pt is having MRI of her ankle. Possible septic joint. Blood cultures are pending and she is on iv atb x 2. Pt continues with fevers and ethol w/d protocal. DC planning needs are uncertain at this time. Will follow.
[2019-11-29 15:15] VITALS: BP 154/105
[2019-11-29 19:30] VITALS: BP 151/116
--- NOTE | 2019-11-29 19:58 | NUR ---
RECEIVED PT'S CARE AROUND 07; PT. ON BED; ALERT; DURING AM ASSESSMENT C/O PAIN; PRN PAIN MEDICATION GIVEN WITH AM MEDICATIONS; GONE EARLY TO MRI; PRN ATIVAN GIVEN BEFORE GOING TO MRI; PER REPORT PT. NOT ABLE TO MANTAIN STILL FOR MRI; BACK TO ROOM; C/O PAIN; ST ON THE MONITOR; PRN PAIN MEDICATION GIVEN THROUGH THE DAY; FENTANYL PATCH APPLIED OVER L. SIDE BACK; PER ORTHO PT. SCHEDULED TO HAVE SURGERY TOMORROW; PASSED ON REPORT; IV D/C DUE TO C/O PAIN WHEN FLUSHING; EDUCATED ABOUT FALL PREVENTIONS; ST. UNDERSTANDING; NEEDS TO BE REMAINED; ASSESSMENT CHARGED; FOLLOWING POC; PASSED ON REPORT;
--- NOTE | 2019-11-30 04:36 | NUR ---
ASSUMED CARE OF PATIENT AT 1900. DURING INITIAL ASSESSMENT PATIENT WAS FOUND TO BE TEARFUL. PATIENT STATED THAT SHE WAS SCARED ABOUT UPCOMING SHOULDER SURGERY AND THAT NO ONE EXPLAINED TO HER WHAT WAS HAPPENING. ATTEMPTED TO REASSURE PATIENT AND EDUCATED PATIENT ABOUT NPO STATUS AFTER MIDNIGHT. PATIENT C/O OF BILATERAL SHOULDER PAIN THROUGH NOC. ALTERNATED PRN PAIN MEDICATIONS ORDERED. PATIENT REPORTED MINIMAL PAIN RELIEF. PATIENT DID NOT SLEEP WELL.
[2019-11-30 04:40] VITALS: BP 149/108
[2019-11-30 06:41] LABS: HEMATOCRIT 25.3 % (37.0-47.0); HEMOGLOBIN 8.5 gm/dL (12.0-15.0); MCH 32.9 pg (26.0-34.0); MCHC 33.4 g/dL (28.0-37.0); MCV 98.6 fL (80.0-100.0); RBC 2.57 mil/uL (4.20-5.00); RDW 21.5 % (10.5-14.5); WBC 6.7 thou/uL (4.0-11.0)
[2019-11-30 06:55] LABS: CALCIUM 8.5 mg/dL (8.5-10.1); CREATININE 0.5 mg/dL (0.6-1.0); POTASSIUM 3.8 mmol/L (3.5-5.1)
[2019-11-30 07:25] VITALS: BP 109/85
[2019-11-30 12:40] VITALS: BP 151/111
[2019-11-30 15:15] VITALS: BP 142/100
[2019-11-30 16:02] LABS: BF NUCLEATED CELLS 21714 /mm3; BF RBC 7488 /mm3
[2019-11-30 16:03] LABS: CLARITY CLOUDY; COLOR YELLOW; TOTAL VOLUME 7 mL
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
[2019-11-30 17:13] LABS: BF NEUTROPHILS 94 %
[2019-11-30 17:14] LABS: BF MACROPHAGE 4 %; SOURCE SYNOVIAL
[2019-11-30 19:20] VITALS: BP 146/102
[2019-12-01 04:20] VITALS: BP 152/102
--- NOTE | 2019-12-01 06:28 | NUR ---
ASSUMED CARE OF PATIENT AT 1900. PATIENT CONTINUES TO C/O UNCONTROLLABLE PAIN 02/07. ALTERNATED BETWEEN PRN PAIN MEDICATIONS ORDERED WITH MINIMAL RELIEF REPORTED BY PATIENT. PATIENT ALSO STATES THAT SHE IS ANXIOUS AND AFRAID ABOUT PENDING RESULTS FROM SHOULDER SURGERY. SHE STATES THAT SHE IS CONCERNED ABOUT HER PHYSICIANS NOT FIGURING OUT WHAT WAS WRONG WITH HER AND HOW LONG SHE WOULD HAVE TO BE HERE. ADMINISTERED PRN LORAZEPAM FOR ANXIETY AND AGITATION. PATIENT CONTINUED TO BE NON-COMPLIANT WITH FALL PREVENTION. SEVERAL TIMES PATIENT WAS FOUND AMBULATING ALONE IN ROOM, PULLING HER IV LINES INSTEAD OF TAKING IV PULL WITH HER. AROUND 0540 PATIENT STATED THAT HER LEFT UPPER ARM MIDLINE WAS LEAKING. COBAN WAS WRAPPED AROUND SITE, REMOVED IT AND FOUND DRESSING SATURATED AND MIDLINE OUT APPROXIMATELY 5 CM COMPARED TO PREVIOUS NIGHT. WILL PASS ON IN REPORT TO DAY SHIFT AND REQUEST FOR IV TEAM TO ASSESS.
[2019-12-01 07:20] VITALS: BP 123/94
--- NOTE | 2019-12-01 09:00 | O ---
[facility] [place] [address] OPERATIVE REPORT Name: ELVIRA STILL Room #: 200-I ADM IN M.R.#: [id number] Admission: 11/23/19 Attend Phys: Dmitriy Montez MD Discharge: Date of : 88 Report #: [id number] THIS REPORT FOR: cc: [facility] - No family physician/PCP [facility] - family physician/PCP Bairon Silva MD ~ CC: [facility] physician/PCP Dmitriy Montez DATE OF SERVICE: 11/30/2019 PREOPERATIVE DIAGNOSES: 1. Septic arthritis, right shoulder. 2. Septic arthritis, left shoulder. 3. Cellulitis or possible septic arthritis, left foot. POSTOPERATIVE DIAGNOSES: 1. Septic arthritis, right shoulder. 2. Septic arthritis, left shoulder. 3. Cellulitis or possible septic arthritis, left foot. PROCEDURES: 1. Aspiration and irrigation and lavage of right shoulder. 2. Aspiration and irrigation and lavage of left shoulder. 3. Aspiration of the left foot. SURGEON: Bairon Silva MD INDICATIONS: This 29-year-old female presents with uncertain infection, which involves multiple areas. Currently, cultures have been no growth and it is uncertain whether this is bacterial or viral or inflammatory in nature. She has a significant generalized skin rash with pustules. She has multiple joint involvement with significant pain in both shoulders and MRI study showing moderate joint effusion. She has MRI evidence of cellulitis in left foot without clear evidence of abscess, but there is pain and some swelling about the metatarsophalangeal joint and the tarsometatarsal joint level. Given these findings and significant ongoing symptoms, we have elected to go ahead with aspiration and irrigation and lavage of both shoulders and aspiration of the left foot. DESCRIPTION OF PROCEDURE: The patient was taken to the operating room where she was placed under general anesthesia. She is already on multiple antibiotics. Attention was first directed to the left shoulder. The left shoulder was carefully meticulously prepped and draped. A spinal needle was used initially to identify the shoulder joint from an anterior approach. About 5-8 mL of cloudy slightly purulent appearing fluid was removed. This was sent to the lab [address] [address] OPERATIVE REPORT Name: ELVIRA STILL Room #: 200-I ADM IN .R.#: [id number] Admission: 11/23/19 Attend Phys: Dmitriy Montez MD Discharge: Date of : 88 Report #: [id number] for cell count and culture. A small skin incision was then made and an arthroscopy sleeve was then inserted into the shoulder joint. This was used for aggressive lavage using antibiotic solution. About 500-600 mL of solution were sequentially passed through the joint and aspirated back out in multiple passes through the same port. Initially, the fluid was cloudy and slightly blood-tinged. At the end, the fluid appeared to be clear. No other abnormalities were identified. The cannula was removed and the skin incision was closed with a single 4-0 nylon suture. Attention was then directed to the right shoulder where a similar procedure was performed. The shoulder was meticulously prepped and draped. A spinal needle was used to assess the joint initially and about 10 mL of cloudy purulent appearing fluid was removed. This was sent to the lab for cell count and culture. A cannula was then inserted and about 500 mL of antibiotic solution were sequentially passed in and out of the joint through the same cannula. Initially, the fluid was somewhat cloudy and blood-tinged. At the end, the fluid seems to be clear. The cannulas were removed. The incision site was closed with a single 4-0 nylon suture. At this point, attention was directed to the left foot. The foot is tender and puffy consistent with generalized cellulitis. There is no clear area of abscess formation or fluid collection, no fluid collection was clearly identified on the preoperative MRI study; however, there was a suggestion of possible mild fluid about the tarsometatarsal level and at the fifth metatarsophalangeal joint. These areas were carefully aspirated using an 18-gauge needle. A small amount of serosanguineous fluid was returned from each area. This seems more consistent with generalized soft tissue edema and cellulitis. The specimen was sent for culture. I did not feel that an open incision was necessary or helpful given these rather limited findings and limited findings on MRI scan. A sterile dressing was applied to all three areas. The patient was awakened and returned to the recovery room in satisfactory condition. <ELECTRONICALLY SIGNED> By: Bairon Silva MD 12/01/19 0900 1143 1203 Bairon Silva MD /nt
[2019-12-01 11:30] VITALS: BP 132/70
[2019-12-01 12:20] VITALS: BP 113/91
[2019-12-01 16:25] VITALS: BP 159/88
--- NOTE | 2019-12-01 16:40 | NUR ---
ASSUMED CARE PT SHIFT CHANGE. ASSESSMENTS CHARTED.MEDS GIVEN PER JUN. PT ALERT AND ORIENTED. VSS. DROWSY THROUGHOUT DAY. PT NOT COMPLIANT WITH FALL RISK MEASURES, ENCOURAGED TO CALL FOR HELP. PT C/O PAIN EVERYWHERE. MANAGED WITH PO AND IV MEDS. PT EXPRESSED ANGER THAT MORPHINE DOSE WAS NOT ENOUGH AND THAT DOSE WAS "FOR BABIES." PT ASLEEP WITHIN 30 MINUTES OF ADMINISTRATION. URINE OUTPUT ADEQUATE. APPETITE GOOD. IV ABX INFUSED PER JUN. DENIES SOB/CP. PRN ATIVAN GIVEN FOR ANXIETY WITH EFFECTIVENESS. PT CURRENTLY SITTING UP IN BED. WILL CONTINUE TO MONITOR. WILL PASS ON REPORT TO NOC RN.
[2019-12-01 17:06] LABS: HSV 1 DNA Negative (Negative); HSV 2 DNA Negative (Negative)
[2019-12-01 19:26] VITALS: BP 149/109
--- NOTE | 2019-12-02 01:29 | NUR ---
2029 PATIENT VERY UPSET AND CONFRONTATIONAL ABOUT DR GUEVARA DECREASING HER MOROPHINE DOSE. REASURED PATIENT. PATIENT STATES THAT 4MG IS GIVEN TO TODDLERS. ASSURED PATIENT THAT THEY DO NOT. CALL PLACED TO COMMERCIAL LOAN SPECIALIST AND WILL COME SEE HER. 2129 LORI ARANDAP HERE AND WENT OVER MEDICATIONS. ADDED LIDODERM PATCHS. WILL START WHEN HERE FROM PHARMACY. PATIENT UP AD PIERO IN ROOM WITH SLOW STEADY GAIT. STATES HER PAIN IS ALWAYS A 10/10. CONTINUE TO ASSES CLOSELY.
[2019-12-02 03:37] VITALS: BP 147/103
--- NOTE | 2019-12-02 05:01 | NUR ---
SLEPT PART OF SHIFT. WHEN AWAKE PAIN IS ALWAYS 10/10 WITH NO RELIEF PAST MEDICATIONS. WORKING ON GOALS AND PLAN OF CARE FOR NOC. STATES SHE NEEDS TO APOLIGIZE TO DAY NURSE BECAUSE SHE WAS MEAN TO HER. REASSURED WE DO CARE ABOUT HER PAIN BUT CAN ONLY GIVE WHAT IS ORDERED. CONTINUE TO ASSES CLOSELY. PATIENT WANTING BREAKFAST. INFORMED DIATARY OPENS AT 0645. MILK AND SNACK GIVEN.
[2019-12-02 07:15] VITALS: BP 152/109
[2019-12-02 11:45] VITALS: BP 129/99
[2019-12-02 16:20] VITALS: BP 165/120; BP 177/120
[2019-12-02 19:24] VITALS: BP 139/103
--- NOTE | 2019-12-02 20:25 | NUR ---
ASSUMMED PT CARE AT APPROXIMATELY 0700. PT A&O X4. ASSESSMENT CHARTED. FALL PRECAUTIONS IN PLACE. PT DENIES HAVING CHEST PAIN. PT DEIES HAVING SOB. PT DID STATE SHE HAD GENERALIZED ACUTE PAIN. PT RECEIVED ANALGESICS THROUGHOUT THE DAY. INFORMED DR. GUEVARA OF PT REQUESTING MORE ANALGESICS. DR. GUEVARA STATED UNDERSTANDING AND DID NOT WANT TO ENTER NEW ORDERS AT THIS TIME. DERMOTOLOGY CONSULTED. SKIN BIOPSIES SENT TO LAB. EDUCATED PT ABOUT POC. PT STATED UNDERSTANDING AND DENIED HAVING FURTHER QUESTIONS. VITAL SIGNS STABLE. PT COMFORTABLE IN BED. PT DENIES HAVING FURTHER CONCERNS.
[2019-12-03 03:35] VITALS: BP 141/109
--- NOTE | 2019-12-03 04:34 | NUR ---
Assumed pt care at 1900. Pt is alert and oriented. No sign of distress noted in pt. Pt is ambulatory in room but heart rate gets elevated with activity. Pt is steady. Assessment completed and documented. Pt verbalizes paon and also pain in the left leg where skin biposy was done. Pain medication administered upon request. Scheduled meds administered to pt. Continue to monitor pt. No further needs at this time.
[2019-12-03 08:50] VITALS: BP 141/101
[2019-12-03 12:15] VITALS: BP 148/100
[2019-12-03 13:07] LABS: BODY FLUID GLUCOSE 4 mg/dL (()); BODY FLUID PROTEIN 4.7 g/dL (())
--- NOTE | 2019-12-03 14:34 | NUR ---
Dermatology and Rhematology consulted to eval patient. Patient up ad timothy in room. Has supportive family. Cont plan for home dc with no needs from casemgt.
[2019-12-03 15:45] VITALS: BP 167/112
--- NOTE | 2019-12-03 17:06 | PATH ---
[facility] [address] [place] [address] PATHOLOGY RPT PROCEDURE Name: ELVIRA STILL Room #: 200-I ADM IN M.R.#: [id number] Admission: 11/23/19 Date of : 88 Discharge: Report #: [id number] Path Case #: [id number] Note LCA Accession Number: [id number] TESTS RESULT FLAG UNITS REF RANGE LAB Clinician Provided Cytology Information No. of containers..01 Other (Miscellaneous) Source: 01 RIGHT SHOULDER FLUID DIAGNOSIS: 02 RIGHT SHOULDER FLUID NEGATIVE FOR MALIGNANT CELLS. SILVER METHENAMINE STAINED SMEARS ARE NEGATIVE FOR PNEUMOCYSTIS JIROVECI. NO FUNGAL ORGANISMS ARE PRESENT ON PROPERLY CONTROLLED GMSF STAIN. THIS INTERPRETATION INCLUDES EVALUATION OF A CELL BLOCK. NO MYCOBACTERIAL ELEMENTS IDENTIFIED ON PROPERLY CONTROLLED AFB STAIN. MARKED ACUTE INFLAMMATION ALONG WITH FIBRIN. Pathologist ICD10: 02 M13.0 Signed out by: Kalyn Murray MD, Pathologist NPI- [id number] Performed by: Jeffery Groves, Sludge Control Operator ([facility] [place]) Gross description: 01 5ML, CLOUDY YELLOW, 1 TP 1 CB /LCS 12/02/2019 1353 Local FLAG LEGEND: L-Low Normal,H-High Normal,LL-Alert Low,HH-Alert High <-Panic Low,>-Panic High,A-Abnormal,AA-Critical Abnormal Performed at: [address] [place] [address] Angel Jarrell MD, [address] [address] Rebekah Murray MD, Specimen Comment: A courtesy copy of this report has been sent to [phone] Specimen Comment: Report sent to Performed at: [address], [place], [place] [id number] MD Angel Jarrell MD Phone: [phone]
--- NOTE | 2019-12-03 17:06 | PATH ---
[facility] [address] [address] PATHOLOGY RPT PROCEDURE Name: ELVIRA STILL Room #: 200-I ADM IN M.R.#: [id number] Admission: 11/23/19 Date of : 88 Discharge: Report #: [id number] Path Case #: [id number] Note LCA Accession Number: [id number] TESTS RESULT FLAG UNITS REF RANGE LAB Clinician Provided Cytology Information No. of containers..01 Other (Miscellaneous) Source: LEFT SHOULDER FLUID DIAGNOSIS: 02 LEFT SHOULDER FLUID NEGATIVE FOR MALIGNANT EPITHELIAL CELLS. THIS INTERPRETATION INCLUDES EVALUATION OF A CELL BLOCK. ACUTE INFLAMMATORY CELLS ALONG WITH FIBRIN. Pathologist ICD10: 02 M13.0 Signed out by: 02 Rebekah Murray MD, Pathologist NPI- [id number] Performed by: 01 Meche Groves Personal Care Worker ([facility]) Gross description: 01 2ML, WATERS, 1 TP 1 SESAR /SEGUNDO 12/02/2019 1353 Local FLAG LEGEND: L-Low Normal,H-High Normal,LL-Alert Low,HH-Alert High <-Panic Low,>-Panic High,A-Abnormal,AA-Critical Abnormal Performed at: [address] [place] [address] Angel Jarrell MD, [address] [address] Rebekah Murray MD, Specimen Comment: A courtesy copy of this report has been sent to [phone] Specimen Comment: Report sent to Performed at: [address], [place], [place] [id number] MD Angel Jarrell MD Phone: [phone]
[2019-12-03 19:07] LABS: ANA INTERPRETATION Negative (())
[2019-12-03 20:00] VITALS: BP 156/116
[2019-12-04 04:45] VITALS: BP 167/116
--- NOTE | 2019-12-04 05:49 | NUR ---
Assumed pt care at 1900. Pt is alert and oriented. No sign of distress noted in pt. Pt continues to complian about generalize pain. Assessment completed and documented. Scheduled meds administered. Pain meds administered. Continue to monitor. No acute events overnight.
[2019-12-04 07:22] VITALS: BP 155/114
[2019-12-04 11:07] VITALS: BP 119/81
[2019-12-04 13:08] LABS: ANTI-DNA SCREEN 2 IU/mL (0-9); ANTI-RNP <0.2 AI (0.0-0.9)
[2019-12-04 16:18] VITALS: BP 132/98
--- NOTE | 2019-12-04 16:44 | NUR ---
ASSUMED CARE OF PT AT SHIFT CHANGE. ASSESSMENTS CHARTED. MEDS GIVEN PER JUN. PT A&OX4. C/O PAIN TREATED WITH IV AND PO MEDS WITH PARTIAL RELIEF. IV ABX CONTINUES. COMPARISION MRI COMPLETE TODAY. DR. BROWN NOT READY TO DC PT. WILL CONTINUE TO MONITOR AND FOLLOW POC.
--- NOTE | 2019-12-04 19:58 | EEG ---
[facility] [place] [address] [address] [place] [address] ELECTROENCEPHALOGRAM Name: ELVIRA STILL Room #: 200-I ADM IN M.R.#: [id number] Admission: 11/23/19 Attend Phys: Dmitriy Montez MD Discharge: Date of : 88 Report #: [id number] THIS REPORT FOR: //name// CC: MELLY physician/PCP Dmitriy Montez DATE OF SERVICE: 11/25/2019 INTERPRETATION: This patient is being evaluated for the possibility of seizure. EEG is being done to further evaluate that. EEG was done by placing the electrode by standard 10-20 system of electrode placement. Both referential and sequential montages were used for recording. Background activity in this patient is difficult to determine because it is intermixed with a lot of artifact. Background activity appeared to be about 8 Hz and 30 microvolts. It is symmetrical activity. The patient appeared to be drowsy and that is associated with bilateral slowing. Throughout the record, no active epileptiform activity was noticed. IMPRESSION: EEG is difficult to interpret because of the patient's EEG has a lot of artifact. It does not appear to be showing any active epileptiform activity. Thank you very much for this referral. <ELECTRONICALLY SIGNED> By: Ricardo Rivero MD 12/04/19 1958 1734 1751 Ricardo Rivero MD /nt
[2019-12-04 20:25] VITALS: BP 124/89
--- NOTE | 2019-12-05 03:34 | NUR ---
PT ARRIVES TO THE FLOOR AT 2009. PT HAS COMPLAINTS OF PAIN AT A 9/10. ALERT AND ORIENTED X 4 WITH SOME CONFUSION. PT TAKES ALL MEDS WHOLE. PT SLEEPS OFF AND ON THROUGH OUT THE NIGHT. PT STATES THAT SHE CANT SLEEP THROUGH THE WHOLE NIGHT AND WANTS TO KNOW WHAT IS WRONG WITH HER HEALTH. PT DRINKS OJ ALL NIGHT. PT IS NON COMPLIANT WITH THE FALL PRECAUTIONS. WILL CONTINUE TO MONITOR.
[2019-12-05 06:10] VITALS: BP 146/99
[2019-12-05 07:20] VITALS: BP 153/113
--- NOTE | 2019-12-05 11:49 | NUR ---
PT CONTINUES ON IV ABX. CARE TEAM INDICATED THAT PT WILL LIKELY BE MEDICALLY STABLE TO DC HOME TOMORROW ON ORAL ABX. CM TO TOUCH BASE WITH PT AND ASSIST WITH ANY DC NEEDS.
[2019-12-05 15:12] VITALS: BP 141/102
--- NOTE | 2019-12-05 18:06 | PATH ---
[facility] [address] [place] [address] PATHOLOGY RPT PROCEDURE Name: GUERITA STILL Room #: 455-P ADM IN M.R.#: [id number] Admission: 11/23/19 Date of : 88 Discharge: Report #: [id number] Path Case #: [id number] LCA Accession Number: [id number] . 01 Material submitted: . calf - LEFT LATERAL CALF. Modifiers: left, lateral . 01 Clinical history: . R/O infectious etiology . 02 Diagnosis: Skin, left lateral calf, shave biopsy: - Psoriasiform dermatitis (see comment). (IVANIA:dwight; 12/05/2019) MBR 12/05/2019 1450 Local . 02 Comment: Due to the overlying neutrophilic scale crust and superficial epidermal pustules, a PAS stain for fungus was performed, along with an appropriate positive control, and is negative. . With this pattern of inflammation, psoriasis is favored. Other possibilities within the differential diagnosis would be subcorneal pustular dermatosis. Acute generalized exanthematous pustulosis is not favored due to the absence of eosinophils. Please correlate clinically as the only clinical history provided is "R/O infectious etiology". . (SAS:road crossing guard; 12/05/2019) . Special stain: PAS fungus: Negative . 02 Electronically signed: . Kenzie Han MD, Pathologist NPI- [id number] . 01 Gross description: . The specimen is received in formalin, labeled "Guerita Still, left lateral calf". Received is a shave biopsy measuring 1.1 x 0.8 x 0.1 cm in greatest dimensions. The epidermal surface displays a poorly circumscribed, irregular in contour, flaky and white-mixon to light mixon lesion measuring 0.9 x 0.6 cm. The surgical margin is inked. The specimen is trisected and entirely submitted in cassette A1. ([facility]; 12/03/2019) QAC/QAC 12/03/2019 1651 Local . 02 Microscopic: . Multiple levels of a sectioned shave biopsy of skin shows parakeratosis [address] [address] PATHOLOGY RPT PROCEDURE Name: GUERITA STILL Room #: 455-P ADM IN M.R.#: [id number] Admission: 11/23/19 Date of : 88 Discharge: Report #: [id number] Path Case #: [id number] with neutrophils. The underlying epidermis is psoriasiform with diminution of the granular cell layer and with superficial spongiform pustules. The underlying dermis displays a superficial perivascular mixed cell inflammatory infiltrate with conspicuous coiling of capillaries up into overlying dermal papillae. A PAS stain for fungus was performed, along with an appropriate positive control, and is negative. (SAS:road crossing guard; 12/05/2019) . 02 Pathologist provided ICD-10: L30.9 . 02 CPT . 564087, [id number] Specimen Comment: A courtesy copy of this report has been sent to [phone] Specimen Comment: Report sent to Performed at: [address] [facility] [address], [place] [id number] MD Angel Jarrell MD Phone: [phone] Performed at: 02 [facility] [address] [id number] MD Kenzie Han MD Phone: [phone]
--- NOTE | 2019-12-05 19:35 | NUR ---
ASSUMED CARE OF PATIENT AT 0700. ASSESSMENT COMPLETED. C/O LEFT SHOULDER PAIN AND GENERALIZED JOINT PAIN. SCATTERED RASH WHICH IS TREATED WITH NYSTANTIN. PAIN MEDICATIONS ALTERNATED WITH HYDROCODONE AND MORPHINE. PATIENT CALLS OUT FOR PAIN MEDICATION HOURLY, NEXT DOSE TIME IS WRITTEN ON PATIENT'S WHITE BOARD. PATIENT REFUSED NOON MEDICATIONS AND TREATENED TO LEAVE AMA WITHOUT AN INCREASE IN PAIN MEDICATION. DR. FORREST WAS CONTACTED AND ADVISED FOR THE PATIENT TO USE ICE PACKS. PATIENT STATES, "MY MOTHER WILL NOT LET ME LEAVE THE HOSPITAL SO I MIGHT WELL TAKE THE ANTIBIOTICS". MRI ORDERED OF LEFT SHOULDER WITH LORAZEPAM ORDERED 30 MIN PRIOR. PATIENT UPSET THAT I COULD NOT GIVE HER LORAZEPAM WIHTOUT KNOWING WHEN THEY WERE COMING FOR THE MRI. PATIENT ASKED TO GO OUTSIDE TO SMOKE MULTIPLE TIMES THROUGHOUT THE DAY, SHE REFUSED THE NEED FOR NICOTINE PATCHES.
[2019-12-05 20:06] LABS: SYPHILIS AB Non Reactive (Non Reactive)
[2019-12-05 20:12] VITALS: BP 164/120
[2019-12-06] VITALS: BP 152/92
--- NOTE | 2019-12-06 03:57 | NUR ---
PATIENT AOX4 MAKES NEEDS KNOWN. PAIN CONTROLLED THIS SHIFT. PATIENT WAS ON CC TELE CALLED BUSINESS ADMINISTRATION INSTRUCTOR NEW ORDER TO CHANGE PATIENT ON M/S TELE. PATIENT IS UP AT PIERO. PATIENT IV NEEDS CHANGING BUT PATIENT REFUSED AND WAS TEARFUL. PATIENT REFUSED SCD/ LEVONOX.PATIENT IN BED ASLEEP AT THIS TIME BREATHING REGULAR AND UNLABOURED.
[2019-12-06 04:47] VITALS: BP 162/115
[2019-12-06 07:57] VITALS: BP 162/112
--- NOTE | 2019-12-06 16:00 | NUR ---
ASSUMESD CARE AT 0700. PT IS ALERT AND ORIENTED. VSSA/RA TELE NSR. BP HIGH. PT C/O OF PAIN. GI/ WNL. TOLERATING DIET. PIV WITHOUT ISSUES. PAIN MEDS GIVEN ORDERED PRN. SCATTERED LESIONS NOTED. FAINT, RED CIRCLES. PT IS UAL, STEADY ON HER FEET. EDUCATED PROVIDED TO CALL IF NEEDS ARISE. CALL LIGHT IN REACH. WILL CONTINUE TO MONITOR PT STATED AROUND 1500 TO "CALL THE DR AND GET HER SCRIPTS SO SHE CAN GO HOME". SPOKE WITH ADRIANE WHO STATED WE ARE WAITING ON ID. I EXPLAINED TO PT SHE CAN LEAVE AMA OR WAIT. SHE DECIDED TO WAIT. WILL MONITOR
[2019-12-06 16:12] VITALS: BP 145/107
[2019-12-06] MEDS ORDERED: VALACYCLOVIR500 MG PO (16:55)
[2019-12-06] MEDS ORDERED: VITAMIN B-1100 M2 PO (16:55)
[2019-12-06] MEDS ORDERED: CLONIDINE HCL0.2 M2 PO (16:55)
[2019-12-06] MEDS ORDERED: PEPCID20 MG PO (16:55)
[2019-12-06] MEDS ORDERED: NEURONTIN 300M300 M2 PO (16:55)
[2019-12-06] MEDS ORDERED: KEPPRA 500 MG500 MG PO (16:55)
[2019-12-06] MEDS ORDERED: CYCLOBENZAPRINE5 MG PO (16:55)
[2019-12-06] MEDS ORDERED: IBUPROFEN 400400 M2 PO (16:55)
[2019-12-06] MEDS ORDERED: COZAAR 50 MG TA50 MG PO (16:55)
[2019-12-06] MEDS ORDERED: PRENATAL PO (16:55)
[2019-12-06] MEDS ORDERED: DOXYCYCLINE HYC50 MG PO (17:06)
[2019-12-06] MEDS ORDERED: FLUCONAZOLE 10100 MG PO (17:06)
[2019-12-06] MEDS ORDERED: PREDNISONE 10 M10 M1 PO (17:07)
[2019-12-06 17:14] VITALS: BP 145/107
[2019-12-07 09:55] LABS: SOURCE SYNOVIAL
[2019-12-07 10:14] LABS: HSV PCR SOURCE PUSTULE
== END 2019-12-06 17:22 | disposition home or self-care (01) | DRG 871 ==
LOC: ER 14:57 → EROBS 17:08 → 2N 17:08 → 4W 12-04 20:12
PROVIDERS: Anesthesiology; Hospitalist; Nurse Practitioner Family; Orthopaedic Surgery; Psychiatry & Neurology Psychiatry; Specialist; ADMIT Internal Medicine; ATTEND Internal Medicine
PROC: 02HV33Z Insertion of Infusion Device into Superior Vena Cava, Percutaneous Approach (ICD-10-PCS; principal; 2019-11-27)
PROC: 0R9J3ZZ Drainage of Right Shoulder Joint, Percutaneous Approach (ICD-10-PCS; 2019-11-28)
PROC: 05HC33Z Insertion of Infusion Device into Left Basilic Vein, Percutaneous Approach (ICD-10-PCS; 2019-11-28)
PROC: 0R9K3ZZ Drainage of Left Shoulder Joint, Percutaneous Approach (ICD-10-PCS; 2019-11-30)
PROC: 0R9J3ZZ Drainage of Right Shoulder Joint, Percutaneous Approach (ICD-10-PCS; 2019-11-30)
PROC: 3E1U38Z Irrigation of Joints using Irrigating Substance, Percutaneous Approach (ICD-10-PCS; 2019-11-30)
PROC: 0Y9N3ZZ Drainage of Left Foot, Percutaneous Approach (ICD-10-PCS; 2019-11-30)
DX: A41.9 Sepsis, unspecified organism (principal); E43 Unspecified severe protein-calorie malnutrition; M00.812 Arthritis due to other bacteria, left shoulder; M00.811 Arthritis due to other bacteria, right shoulder; L03.116 Cellulitis of left lower limb; N39.0 Urinary tract infection, site not specified; E87.1 Hypo-osmolality and hyponatremia; F41.9 Anxiety disorder, unspecified; F31.9 Bipolar disorder, unspecified; E87.6 Hypokalemia; F17.210 Nicotine dependence, cigarettes, uncomplicated; E83.42 Hypomagnesemia; F39 Unspecified mood [affective] disorder; B37.9 Candidiasis, unspecified; K70.30 Alcoholic cirrhosis of liver without ascites; M25.412 Effusion, left shoulder; M25.411 Effusion, right shoulder; D64.89 Other specified anemias; M13.812 Other specified arthritis, left shoulder; M13.811 Other specified arthritis, right shoulder; M13.872 Other specified arthritis, left ankle and foot; Z20.828 Contact with and (suspected) exposure to other viral communicable diseases; Z88.0 Allergy status to penicillin; Z79.899 Other long term (current) drug therapy; Z68.28 Body mass index [BMI] 28.0-28.9, adult
CPT/HCPCS: 10045; 10047; 10081; 27000; 50010; 50101; 50172; 50386; 50417; 56526; 57091; 57095; 57103; 70005

== ENCOUNTER 2019-12-08 13:07 | Emergency (ER) | payer OTHER ==
[~2019-12-08] VITALS: Ht 157.5 cm; Wt 54.4 kg
[~2019-12-08 13:07] MED LIST changes: +CLONIDINE HCL0.2 M2 PO; +COZAAR 50 MG TA50 MG PO; +CYCLOBENZAPRINE5 MG PO; +DOXYCYCLINE HYC50 MG PO; +FLUCONAZOLE 10100 MG PO; +IBUPROFEN 400400 M2 PO; +KEPPRA 500 MG500 MG PO; +NEURONTIN 300M300 M2 PO; +PEPCID20 MG PO; +PREDNISONE 10 M10 M1 PO; +PRENATAL PO
[2019-12-08 15:12] LABS: URINE BILIRUBIN NEGATIVE (Negative); URINE BLOOD NEGATIVE (Negative); URINE CLARITY CLEAR; URINE COLOR YELLOW; URINE GLUCOSE-RANDOM* NEGATIVE (Negative); URINE KETONES NEGATIVE (Negative); URINE NITRITE-REFLEX NEGATIVE (Negative); URINE PROTEIN (DIPSTICK) NEGATIVE (Negative); URINE SPECIFIC GRAVITY 1.015 (1.005-1.035); URINE UROBILINOGEN 0.2 E.U./dl (0.2-1.0)
[2019-12-08 15:14] LABS: ABSOLUTE NEUTROPHILS 11.4 thou/uL (1.4-8.2); BASOPHILS 0.4 % (0.0-2.0); EOSINOPHILS 0.1 % (0.0-3.0); HEMATOCRIT 30.1 % (37.0-47.0); HEMOGLOBIN 9.9 gm/dL (12.0-15.0); LYMPHOCYTES 12.7 % (24.0-44.0); MCH 30.5 pg (26.0-34.0); MCHC 32.8 g/dL (28.0-37.0); MONOCYTES 9.6 % (1.0-8.0); POLYS 77.2 % (36.0-66.0); RBC 3.23 mil/uL (4.20-5.00); RDW 21.6 % (10.5-14.5); URINE LEUKOCYTES-REFLEX 2+ (Negative); WBC 14.7 thou/uL (4.0-11.0)
[2019-12-08 15:21] LABS: AMP/METHAMP Negative (Negative); ANION GAP 12 mmol/L (7-16); BARBITURATES Negative (Negative); BENZODIAZEPINES Negative (Negative); BUN 6 mg/dL (7-18); CALCIUM 8.9 mg/dL (8.5-10.1); CHLORIDE 95 mmol/L (98-107); CO2 28 mmol/L (21-32); COCAINE Negative (Negative); CREATININE 0.6 mg/dL (0.6-1.0); GLUCOSE 99 mg/dL (74-106); METHADONE Negative (Negative); OPIATES Negative (Negative); PCP Negative (Negative); POTASSIUM 3.4 mmol/L (3.5-5.1); SODIUM 135 mmol/L (136-145)
[2019-12-08 15:27] LABS: ALBUMIN 2.6 g/dL (3.4-5.0); BACTERIA-REFLEX 1-9 Few /HPF (None Seen); CASTS None Seen /LPF (None Seen); CRYSTALS None Seen /LPF (None Seen); DIRECT BILIRUBIN < 0.1 mg/dL (<0.1-0.2); SGOT 47 U/L (15-37); SGPT 47 U/L (30-65); SQUAMOUS >10 Many /LPF (0-3); TOTAL BILIRUBIN 0.4 mg/dL (0.2-1.0); TOTAL PROTEIN 7.5 g/dL (6.4-8.2); URINE RBC None Seen /HPF (0-2); URINE WBC-REFLEX 6-15 Few /HPF (0-5)
[2019-12-08 15:46] LABS: PLATELET COUNT 1005 thou/uL (150-400)
[2019-12-08] MEDS ORDERED: NORCO 5-325 TA1 EAC2 PO (17:50)
[2019-12-08 18:11] VITALS: BP 165/100
== END 2019-12-08 18:55 | disposition home or self-care (01) ==
LOC: ER 13:07
PROVIDERS: Emergency Medicine
DX: M13.0 Polyarthritis, unspecified (principal); D47.3 Essential (hemorrhagic) thrombocythemia; R21 Rash and other nonspecific skin eruption; F41.9 Anxiety disorder, unspecified; F31.9 Bipolar disorder, unspecified; F17.210 Nicotine dependence, cigarettes, uncomplicated; Z91.19 Patient's noncompliance with other medical treatment and regimen; Z98.890 Other specified postprocedural states; Z79.899 Other long term (current) drug therapy; Z79.2 Long term (current) use of antibiotics; Z88.0 Allergy status to penicillin

== ENCOUNTER 2019-12-17 14:45 | Inpatient (IN) | payer OTHER ==
[~2019-12-17] VITALS: Ht 157.5 cm; Wt 54.4 kg
[~2019-12-17 14:45] MED LIST changes: +NORCO 5-325 TA1 EAC2 PO
[2019-12-17 14:57] VITALS: BP 118/80
[2019-12-17 15:57] LABS: ABSOLUTE NEUTROPHILS 8.1 thou/uL (1.4-8.2); BASOPHILS 0.1 % (0.0-2.0); EOSINOPHILS 0.2 % (0.0-3.0); HEMATOCRIT 28.2 % (37.0-47.0); HEMOGLOBIN 9.4 gm/dL (12.0-15.0); LYMPHOCYTES 28.9 % (24.0-44.0); MCH 30.7 pg (26.0-34.0); MCHC 33.2 g/dL (28.0-37.0); MCV 92.5 fL (80.0-100.0); MONOCYTES 6.8 % (1.0-8.0); PLATELET COUNT 584 thou/uL (150-400); RBC 3.05 mil/uL (4.20-5.00); RDW 21.9 % (10.5-14.5); WBC 12.7 thou/uL (4.0-11.0)
[2019-12-17 16:00] LABS: CREATININE 0.5 mg/dL (0.6-1.0)
[2019-12-17 18:11] VITALS: BP 129/87
[2019-12-17 18:26] VITALS: BP 129/87
[2019-12-17 19:00] VITALS: BP 132/94
[2019-12-18 05:42] LABS: HEMATOCRIT 27.9 % (37.0-47.0); HEMOGLOBIN 9.1 gm/dL (12.0-15.0); MCH 30.6 pg (26.0-34.0); MCHC 32.7 g/dL (28.0-37.0); MCV 93.6 fL (80.0-100.0); RBC 2.98 mil/uL (4.20-5.00); RDW 21.3 % (10.5-14.5); WBC 12.4 thou/uL (4.0-11.0)
[2019-12-18 05:58] LABS: CALCIUM 8.5 mg/dL (8.5-10.1); CREATININE 0.5 mg/dL (0.6-1.0); POTASSIUM 4.4 mmol/L (3.5-5.1)
--- NOTE | 2019-12-18 06:00 | NUR ---
Pt admitted from ED approx 1830 W/Cellulitis to LE. Bright/OX4,moaning screaming out loud for pain meds frequently and pulling away even when not touched. Order for Morphine ordered and administered with some relief reported. Pt able to get up and void per BSC w/o any problems afterwards. Wound pictures taken but not printed no camera color at this time. Fall precautions in place.
[2019-12-18 08:19] VITALS: BP 131/93
--- NOTE | 2019-12-18 09:39 | NUR ---
RD consult received. Pt admitted with cellulitis LLE, possible septic arthritis. Hx etoh abuse, cirrhosis, bipolar. Pt has had multiple admissions. Visit this am, eating breakfast and states "really likes food here", eats very well especially being on steroid. Wts fluctuate 120-130 lb, no hx loss. On vitamin and thiamine appropriate for Etoh hx. Low nutrition risk
[2019-12-18 13:41] LABS: AMP/METHAMP Negative (Negative); BARBITURATES Negative (Negative); BENZODIAZEPINES Negative (Negative); COCAINE Negative (Negative); METHADONE Negative (Negative); OPIATES POSITIVE (Negative); PCP Negative (Negative)
--- NOTE | 2019-12-18 14:40 | NUR ---
PT ADMITTED RELATED TO CELLULITIS LLE,PAIN ARMS,NECK,BLE. CM REVIEWED CHART AND SPOKE WITH CARE TEAM. CM CALLED AND SPOKE WITH PT AT BEDSIDE THIS DAY. PT APPEARED TO BE A&O X4. CM ROLE INTRODUCED. PT INDICATED SHE LIVES IN A HOUSE WITH HER MOTHER WITH 1 STEPS TO ENTER AND NO STEPS SHE'LL NEED TO USE INSIDE. PT INDICATED SHE HAD BEEN INDEPENENT WITH GAIT TRANSPORTATION AIDE BUT THAT SHE NEEDED ASSISTANCE IN GETTING UP AND THEN SHE TAKES IT SLOW. PT INDICATED HER MOTHER AND FIANCE HAD BEEN ASSISTING HER WITH MED ADMINISTRATION TRANSPORTATION AIDE. PT INDICATED SHE PLANS TO RETURN HOME ONCE MEDICALLY STABLE. PHYSICIAN INIDCATED HE WANTED TO SEE IF PT COULD TRANSFER TO FOR FURTHER EVALUATION FOR ID AND RHEUMATOLOGY. CM CALLED AND SPOKE WITH [facility] REAL ESTATE INSPECTOR AT . SHE INDICATED THAT THEY ARE NOT TAKING INPATIENT TRANSFERS AT THIS TIME DUE TO HIGH CENSUS BUT THAT THEY CAN GO THROUGH THE PROCESS. CM FAXED CLINICAL INFO AND HAD IMAGES CLOUDED. CM TO FOLLOW INDICATED WITH DC PLANNING.
[2019-12-18 16:17] VITALS: BP 141/82
--- NOTE | 2019-12-18 20:04 | NUR ---
Received awake on bed. Due medications given as prescribed, able to swallow meds w/o difficulty. On room air. Vital signs stable. On Ms, not on telemtry; no complaints of chest pain, crushing sensation and heaviness. On regular diet- tolerating well; no nausea, no vomiting and no abdominal pain noted. Continent of bowel and bladder- able to go to the toilet with standby assist. With Ns at 75cc/hr, infusing well at L FA. Complained of pain, due PRN pain meds given as prescribed. Pt said current pain medications not working for her, pt often seen asleep at bedside but constantly complaining of 10/10 pain- physician informed and aware. For possible transfer to [facility]- a/w CM advise. With consult to Dr Corley- US called in consult- a/w rounds. Visited by relative today. Complained of itchiness, Dr Montez informed, PRN Benadryl PO orders obtained- given as prescribed. With edema at L leg- advised pt to keep leg elevated. To continue monitoring patient.
[2019-12-18 20:53] VITALS: BP 141/95
--- NOTE | 2019-12-19 03:33 | NUR ---
Assumed pt crae at 1900. Pt's A/OX4,VSS. C/o pain to shoulders/Left foot 8/10 Medicated per EMAR with relief reported. Up to BR with AX1/IV pole w/o any problems. Swelling persists on left foot with some dryness noted on heel. C/o itching under armpits;on assessments areas yeasty/pink/foul smell order obtained for Nystatin powder and applied as ordered. IVF infusing via LFA w/o any problems voiced. Fall precautions in place. Resting quietly at this time,will continue to monitor pt.
[2019-12-19 07:14] VITALS: BP 168/106
--- NOTE | 2019-12-19 08:45 | NUR ---
Assumed patient care at 0715. Blood Pressure 168/106 at 0714, am blood pressure medications given; she is asymptomatic. LSCTA, ABD soft and non-tender, BS x's 4, skin has some areas with rash, some with peeling skin, edema to LLE and lesions on bottom of left foot. Patient has been taking Benadryl for itching, she claims that this is not effective. Patient also claims that the 2 tabs of Oxycodone only bring her pain level down to a level "seven." She was given Oxycodone 2 tabs po at 0827 for generalized pain, "level nine." Will monitor for effectiveness.
[2019-12-19 20:35] VITALS: BP 167/109
[2019-12-19 22:06] LABS: ANA INTERPRETATION Negative (())
[2019-12-20 03:43] VITALS: BP 157/86
[2019-12-20 05:45] LABS: HEMATOCRIT 27.6 % (37.0-47.0); HEMOGLOBIN 8.8 gm/dL (12.0-15.0); MCH 30.5 pg (26.0-34.0); MCV 95.3 fL (80.0-100.0); RBC 2.89 mil/uL (4.20-5.00); RDW 21.6 % (10.5-14.5); WBC 13.6 thou/uL (4.0-11.0)
[2019-12-20 05:59] LABS: CALCIUM 8.7 mg/dL (8.5-10.1); CREATININE 0.6 mg/dL (0.6-1.0); MAGNESIUM 1.9 mg/dL (1.8-2.4); POTASSIUM 4.7 mmol/L (3.5-5.1)
--- NOTE | 2019-12-20 07:56 | NUR ---
Assumed pt care at 1900. A/OX4,C/o pain allover with some relief from pain meds. Needs reminders to call for help before getting up d/t unsteady gait w/IV pole but not compliant and observed turning bed alarm off once. Re-educated on fall safety. No c/o nausea/vomiting just bloating;pt given snacks throughout the night per request and still verbalized being hungry. IVF infusing via LFA w/o any problems.
[2019-12-20 07:59] VITALS: BP 178/108
[2019-12-20 10:20] VITALS: BP 154/97
--- NOTE | 2019-12-20 11:39 | NUR ---
Received awake on bed. Due medications given as prescribed, able to swallow meds w/o difficulty. On room air. Vital signs stable, with elevated BP noted this AM- scheduled BP meds given as prescribed. On regular diet- tolerating well; no nausea, no vomiting and no abdominal pain noted. Continent of bowel and bladder; able to go to the toilet with standby assist. Assisted in ADLs. With NS at 75cc/hr, infusing well at L FA. Complained of pain, due PRN pain meds given as prescribed; pt requesting for both PO and IV pain meds to be given at the same time, explained to the patient the reason both meds are not to be given at the same time- Dr Montez informed re: pt's requests. To continue monitoring patient. Possible discharge today, a/w CM input and orders.
[2019-12-20] MEDS ORDERED: NORCO 5-325 TA1 EAC2 PO (12:54)
[2019-12-20 13:12] VITALS: BP 178/108
== END 2019-12-20 15:15 | disposition home or self-care (01) | DRG 872 ==
LOC: ER 14:45 → EROBS 17:40 → 4W 17:40
PROVIDERS: Emergency Medicine; Internal Medicine; Nurse Practitioner Family; ADMIT Hospitalist; ATTEND Hospitalist
DX: A41.9 Sepsis, unspecified organism (principal); M02.30 Reiter's disease, unspecified site; M02.312 Reiter's disease, left shoulder; M02.311 Reiter's disease, right shoulder; L03.114 Cellulitis of left upper limb; L03.113 Cellulitis of right upper limb; F41.9 Anxiety disorder, unspecified; K74.60 Unspecified cirrhosis of liver; F31.9 Bipolar disorder, unspecified; I10 Essential (primary) hypertension; F17.210 Nicotine dependence, cigarettes, uncomplicated; G40.909 Epilepsy, unspecified, not intractable, without status epilepticus; L40.9 Psoriasis, unspecified; L98.9 Disorder of the skin and subcutaneous tissue, unspecified; F10.229 Alcohol dependence with intoxication, unspecified; Z88.0 Allergy status to penicillin; Z83.3 Family history of diabetes mellitus; Z79.899 Other long term (current) drug therapy
CPT/HCPCS: 10040

== ENCOUNTER 2019-12-25 15:35 | Emergency (ER) | payer OTHER ==
[~2019-12-25] VITALS: Ht 157.5 cm; Wt 56.7 kg
[2019-12-25 17:32] LABS: ABSOLUTE NEUTROPHILS 6.3 thou/uL (1.4-8.2); BASOPHILS 0.7 % (0.0-2.0); EOSINOPHILS 0.3 % (0.0-3.0); HEMATOCRIT 29.3 % (37.0-47.0); HEMOGLOBIN 9.7 gm/dL (12.0-15.0); LYMPHOCYTES 14.4 % (24.0-44.0); MCH 29.9 pg (26.0-34.0); MCV 90.8 fL (80.0-100.0); MONOCYTES 9.6 % (1.0-8.0); PLATELET COUNT 417 thou/uL (150-400); RBC 3.23 mil/uL (4.20-5.00); RDW 21.7 % (10.5-14.5); WBC 8.4 thou/uL (4.0-11.0)
[2019-12-25 17:43] LABS: CALCIUM 8.7 mg/dL (8.5-10.1); CREATININE 0.5 mg/dL (0.6-1.0); POTASSIUM 3.5 mmol/L (3.5-5.1)
[2019-12-25 20:12] LABS: URINE BILIRUBIN NEGATIVE (Negative); URINE BLOOD NEGATIVE (Negative); URINE CLARITY CLEAR; URINE COLOR YELLOW; URINE GLUCOSE-RANDOM* NEGATIVE (Negative); URINE KETONES NEGATIVE (Negative); URINE LEUKOCYTES-REFLEX NEGATIVE (Negative); URINE NITRITE-REFLEX NEGATIVE (Negative); URINE PROTEIN (DIPSTICK) NEGATIVE (Negative)
[2019-12-25 20:20] LABS: AMP/METHAMP Negative (Negative); BARBITURATES Negative (Negative); BENZODIAZEPINES Negative (Negative); COCAINE Negative (Negative); METHADONE Negative (Negative); OPIATES Negative (Negative); PCP Negative (Negative)
[2019-12-25 20:30] VITALS: BP 154/109
== END 2019-12-25 20:20 | disposition home or self-care (01) ==
LOC: ER 15:35
PROVIDERS: Nurse Practitioner; Physician Assistant
DX: M79.18 Myalgia, other site (principal); G89.29 Other chronic pain; L53.9 Erythematous condition, unspecified; M79.604 Pain in right leg; M79.605 Pain in left leg; M79.601 Pain in right arm; M79.602 Pain in left arm; M79.89 Other specified soft tissue disorders; R11.2 Nausea with vomiting, unspecified; F41.9 Anxiety disorder, unspecified; F31.9 Bipolar disorder, unspecified; I10 Essential (primary) hypertension; F17.210 Nicotine dependence, cigarettes, uncomplicated; Z98.890 Other specified postprocedural states; Z79.899 Other long term (current) drug therapy; Z88.0 Allergy status to penicillin

== ENCOUNTER 2020-09-21 13:54 | Inpatient (IN) | payer OTHER ==
[~2020-09-21] VITALS: Ht 157.5 cm; Wt 59.2 kg
[2020-09-21 13:55] VITALS: BP 146/106
[2020-09-21 15:39] LABS: ABSOLUTE NEUTROPHILS 6.3 thou/uL (1.4-8.2); BASOPHILS 0.5 % (0.0-2.0); EOSINOPHILS 0.1 % (0.0-3.0); HEMATOCRIT 33.4 % (37.0-47.0); HEMOGLOBIN 11.4 gm/dL (12.0-15.0); LYMPHOCYTES 7.8 % (24.0-44.0); MCH 34.9 pg (26.0-34.0); MCV 102.6 fL (80.0-100.0); MONOCYTES 5.3 % (1.0-8.0); PLATELET COUNT 433 thou/uL (150-400); POLYS 86.3 % (36.0-66.0); RBC 3.26 mil/uL (4.20-5.00); RDW 16.5 % (10.5-14.5); WBC 7.3 thou/uL (4.0-11.0)
[2020-09-21 15:54] LABS: ALBUMIN 2.6 g/dL (3.4-5.0); CREATININE 1.1 mg/dL (0.6-1.0); TOTAL BILIRUBIN 2.4 mg/dL (0.2-1.0); TOTAL PROTEIN 6.7 g/dL (6.4-8.2)
[2020-09-21 15:56] LABS: POTASSIUM 2.8 mmol/L (3.5-5.1)
--- NOTE | 2020-09-21 16:00 | NUR ---
PT FROM HOME POV WITH GENERALIZED PAIN, N/V. PT HAS HX OF PSORIATIC ARTHRITIS AND IS CURRENTLY BROKEN OUT OVER ENTIRE BODY. PT SKIN IS EXTREMELY TENDER TO THE TOUCH AND ITCHY. PT NOTES BENADRYL DOES NOT WORK FOR HER. PT NOTES STEROIDS DONT WORK FOR HER. PT STATES SHE HAS NOT BEEN ON ANY MEDICATIONS SHE CANNOT AFFORD THEM AND IS WAITING ON MEDICAID. THIS RN HAVING DIFFICULT TIME ASSESSING PT SHE WILL RANDOMLY THRASH AND YELL OUT IN PAIN. THIS RN ENCOURAGED DEEP BREATHING. PT NOTES "A LOT OF PUKE" PT DENIES BLOOD IN HER VOMIT OR STOOL. DENIES URINARY ISSUES. PT HAS PMH OF ETOH ABUSE AND IS A DRINK BUT STATES SHE HAS NOT BEEN DRINKING RECENTLY. PT IS ALERT AND ORIENTED X4, GCS 15, PT DODSON, PT VSS ON RA, SPOUSE AT BEDSIDE, CALL LIGHT ENCOURAGED TO USE
--- NOTE | 2020-09-21 18:40 | NUR ---
PT GIVEN ATIVAN AND BENADRYL TO HELP WITH SYMPTOMS AND AGITATION. PT ENCOURAEGD SLOW DEEP BREATHING
[2020-09-21 19:09] VITALS: BP 134/104
--- NOTE | 2020-09-21 19:28 | NUR ---
REPORT GIVEN TO KAYLA BEARDEN AT THIS TIME. PT STABLE AND READY FOR FLOOR TRANSPORT
[2020-09-21 20:20] VITALS: BP 126/85
[2020-09-22 00:13] VITALS: BP 131/102
--- NOTE | 2020-09-22 03:26 | NUR ---
PT ARRIVED FROM ER VIA CART, PLACED IN ROOM 359. ADMISSION ASSESSMENTS COMPLETED. PT C/O GENERALIZED 10/10 PAIN AND 10/10 PAIN IN HER ABDOMEN. NOTED HX ON PTS CHART OF WANTING IV PAIN MEDICATION AND BEING NON-COMPLIANT WITH MEDICATION REGIMINE. OF PTS CURRENT MED LIST, SHE STATED SHE HAS NOT BEEN TAKING HER MEDICATIONS AND IS NOT SURE WHEN SHE LAST TOOK THEM. THE ONLY MED SHE TOOK AND COMPLETED THE WHOLE COURSE WAS THE VANCYCLOVIR. "NONE OF THESE MEDS WORK ON ME."
[2020-09-22 04:04] VITALS: BP 135/102
[2020-09-22 04:39] LABS: HEMATOCRIT 28.4 % (37.0-47.0); HEMOGLOBIN 9.7 gm/dL (12.0-15.0); MCH 34.5 pg (26.0-34.0); MCHC 34.1 g/dL (28.0-37.0); MCV 101.2 fL (80.0-100.0); RBC 2.81 mil/uL (4.20-5.00); RDW 15.8 % (10.5-14.5); WBC 4.4 thou/uL (4.0-11.0)
[2020-09-22 04:45] LABS: CALCIUM 6.8 mg/dL (8.5-10.1); CREATININE 0.7 mg/dL (0.6-1.0); MAGNESIUM 1.1 mg/dL (1.8-2.4)
[2020-09-22 05:13] LABS: POTASSIUM 2.8 mmol/L (3.5-5.1)
--- NOTE | 2020-09-22 07:33 | EKG ---
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 : 1990 Requested By: Patti Vargas Order Number: [id number] MD: Ba Bo Measurements Intervals Mode Rate: 71 P: 60 NJ: 114 QRS: 67 QRSD: 101 T: 62 QT: 537 QTc: 584 Interpretive Statements Sinus rhythm Borderline short NJ interval Abnrm T, probable ischemia, anterolateral lds Prolonged QT interval Compared to ECG 11/27/2019 10:14:55 Possible ischemia now present Prolonged QT interval now present Sinus tachycardia no longer present T-wave abnormality no longer present Electronically Signed On 09-22-2020 7:33:18 CDT by Ba Bo [email or web address] <ELECTRONICALLY SIGNED> By: Ba Bo MD, FACC 09/22/20 0733 02 02 Ba Bo MD, [facility] /EPI
[2020-09-22 08:22] VITALS: BP 139/110
--- NOTE | 2020-09-22 11:05 | NUR ---
ASSUMED PT CARE AT SHIFT CHANGE, WHEN ADMINISTERING MORNING MEDICATION, PT DID NOT SWALLOW PILLS BUT THREW THEM ON THE FLOOR WHEN THIS RN WAS NOT LOOKING. HOUSEKEEPING AND THIS RN RETRIEVED TWO PILLS, IDENTIFIED VITAMIN AND THIAMINE FROM PT FLOOR. PT WAS EXCLUSIVELY WATCHED WHEN TAKING PO ATIVAN. PT DID SWALLOW THE MEDICATION. PT DEMANDED SECOND IV TO BE REMOVED. IV REMOVED FROM LEFT HAND W/O ISSUE. THIS RN REPLACED DRESSING ON R HAND IV. FLUIDS INFUSING. PT ABLE TO AMBULATE AROUND ROOM WITH IV POLE W/O ISSUE. PT ABLE TO DRESS/UNDRESS HERSELF IN HOSPITAL GOWN INDEPENDENTLY. PT REFUSES TO DRINK WATER, STATES SHE ONLY DESIRES SODA. RETURNED BREAKFAST MEAL TRAY AND STATED "I AM NOT EATING THIS SHIT". TOAST AND FRESH FRUIT DELIVERED TO PT ROOM, PT STATES "I AM JUST TOO SICK TO MY STOMACH TO EAT" IV ZOFRAN ADMINISTERED. PT HAD NO COMPLAINTS OF NAUSEA AFTER.
--- NOTE | 2020-09-22 12:04 | NUR ---
PT STATES SHE SMOKES A PACK PER DAY, THIS RN INFORMED DR REYES FOR A NICONTINE PATCH.
--- NOTE | 2020-09-22 13:36 | NUR ---
PT HAVING INCREASE ANXIETY, HAS DEMANDED PAIN MEDICATION. THIS RN PAGED DR REYES. ORDERS PLACED.
--- NOTE | 2020-09-22 14:40 | EKG ---
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 : 1990 Requested By: Patti Vargas Order Number: [id number] MD: Ba Bo Measurements Intervals [place] Rate: 72 P: 87 IA: 177 QRS: 59 QRSD: 196 T: 40 QT: 569 QTc: 623 Interpretive Statements Sinus rhythm Left atrial enlargement LVH with secondary repolarization abnormality Prolonged QT interval Compared to ECG 11/27/2019 10:14:55 Atrial abnormality now present Left ventricular hypertrophy now present Early repolarization now present Prolonged QT interval now present Sinus tachycardia no longer present T-wave abnormality no longer present Electronically Signed On 09-22-2020 14:40:34 CDT by Ba Bo [email or web address] <ELECTRONICALLY SIGNED> By: Ba Bo MD, [facility] 09/22/20 1440 1614 1614 Ba Bo MD, [facility] /EPI
--- NOTE | 2020-09-22 15:00 | NUR ---
INITIAL ASSESSMENT: SW reviewed chart and spoke with nursing and attending physician. Pt was admitted from home due to nausea/vomiting/abdominal pain. Rheumatology consulted. Pt with hx of ETOH abuse and medical non-compliance. SW met with pt at bedside. Introduced role of SW. Pt is known to SW from prior hospitalizations. Pt is alert/orientated x 4. Pt reports she lives at home with family. Prior to admission, pt was independent with ADLs. Pt states she has been using a walker lately to assist with ambulation due to joint pain. Pt reports her PCP is Dr. Uzair Corley. No hx of HH services or post-acute placement. Pt has declined referrals for ETOH resources in the past. Plan is for pt to discharge home when medically stable. SW is following to assist as needed with discharge planning.
--- NOTE | 2020-09-22 18:02 | NUR ---
PT CRYING IN ROOM EARLIER, STATED "I'M IN SO MUCH PAIN" VITALS WNL. INFORMED PT PRN MED IS NOT TIME YET. PT STATED OK. PT LATER WALKING HALLS. PT HAD NO SOCKS OR SHOES ON. THIS RN ENCOURAGED PT TO ROOM FOR FEET COVERING. PT REFUSED AND KEPT WALKING THE HALLS.
[2020-09-22 21:25] VITALS: BP 142/112
--- NOTE | 2020-09-22 23:58 | NUR ---
AT 2347 PT WALKED TO THE NURSING STATION AND STATED THAT THERE WERE BUGS CRAWLING OVER HER BODY AND THERE WERE PEOPLE IN HER ROOM STARING AT HER. "I'M NOT MAKING THAT UP." PT WAS ORIGINALLY ASKED AT THE TIME OF HER ADMIT (09/22 AT 2030) WHEN THE LAST TIME SHE DRANK ALCOHOL AND HER RESPONSE WAS THREE TO FOUR DAYS AGO. THUS THIS DATE WOULD EQUAL DAY FOUR OR FIVE SINCE THE LAST ETOH DRINK. TO NOTE, PT WAS GIVEN 1MG IV ATIVAN AT 2311 FOR AGITATION. ALSO, PT WAS GIVEN AMBIEN AT 214 BY FELLOW RN. PT HAS BEEN MOANING MUCH OF THE NIGHT, OCCASIONALLY YELLING OUT. PT STATES THAT SHE IS CONTANTLY ITCHING AND THAT BENDYRL "DOES'NT WORK ANYMORE." SHE WAS GIVEN ONE DOSE OF FENTANYL FOR 10/10 PAIN TO WHICH SHE STATED THAT THE PAIN WAS DECREASED TO 7/10 BUT ONLY BRIEFLY. WHEN ASKED AT WHY SHE WAS YELLING OUT SHE STATED IT WAS DUE TO THE PAIN. "OTHER HOSPITALS DOUBLE THE PAIN MEDS." SPOKE WITH MARCIAL. TORADOL DOSE ORDERED.
[2020-09-23 04:45] VITALS: BP 152/118
== END 2020-09-23 06:07 | disposition left against medical advice (07) | DRG 392 ==
LOC: ER 13:54 → EROBS 18:45 → 3W 18:45
PROVIDERS: Nurse Practitioner Family; ADMIT Internal Medicine; ATTEND Internal Medicine
DX: K52.9 Noninfective gastroenteritis and colitis, unspecified (principal); F41.9 Anxiety disorder, unspecified; F31.9 Bipolar disorder, unspecified; I10 Essential (primary) hypertension; K74.60 Unspecified cirrhosis of liver; E87.6 Hypokalemia; M19.90 Unspecified osteoarthritis, unspecified site; F10.11 Alcohol abuse, in remission; G89.29 Other chronic pain; F17.200 Nicotine dependence, unspecified, uncomplicated; F12.10 Cannabis abuse, uncomplicated; R74.01 Elevation of levels of liver transaminase levels; L40.9 Psoriasis, unspecified; Z53.21 Procedure and treatment not carried out due to patient leaving prior to being seen by health care provider; Z98.891 History of uterine scar from previous surgery; Z91.14 Patient's other noncompliance with medication regimen; Z79.899 Other long term (current) drug therapy; Z88.0 Allergy status to penicillin
CPT/HCPCS: 10779; 10879

== ENCOUNTER 2021-01-27 16:23 | Emergency (ER) | payer OTHER ==
[~2021-01-27] VITALS: Ht 157.5 cm; Wt 59.0 kg
[2021-01-27 17:44] LABS: HEMATOCRIT 35.9 % (37.0-47.0); HEMOGLOBIN 11.4 gm/dL (12.0-15.0); MCH 30.8 pg (26.0-34.0); MCHC 31.9 g/dL (28.0-37.0); MCV 96.5 fL (80.0-100.0); RBC 3.72 mil/uL (4.20-5.00); RDW 16.5 % (10.5-14.5); WBC 5.1 thou/uL (4.0-11.0)
[2021-01-27 17:47] LABS: ANION GAP 11 mmol/L (7-16); BUN 8 mg/dL (7-18); CALCIUM 9.2 mg/dL (8.5-10.1); CHLORIDE 103 mmol/L (98-107); CO2 21 mmol/L (21-32); CREATININE 0.5 mg/dL (0.6-1.0); GLUCOSE 114 mg/dL (74-106); SODIUM 135 mmol/L (136-145)
[2021-01-27 17:49] LABS: URINE BILIRUBIN NEGATIVE (Negative); URINE BLOOD NEGATIVE (Negative); URINE CLARITY SL CLOUDY; URINE COLOR YELLOW; URINE GLUCOSE-RANDOM* TRACE (Negative); URINE KETONES NEGATIVE (Negative); URINE LEUKOCYTES-REFLEX NEGATIVE (Negative); URINE NITRITE-REFLEX NEGATIVE (Negative); URINE PROTEIN (DIPSTICK) NEGATIVE (Negative); URINE SPECIFIC GRAVITY >= 1.030 (1.005-1.035); URINE UROBILINOGEN 0.2 E.U./dl (0.2-1.0)
[2021-01-27 17:57] LABS: AMP/METHAMP Negative (Negative); BARBITURATES Negative (Negative); BENZODIAZEPINES Negative (Negative); COCAINE Negative (Negative); METHADONE Negative (Negative); OPIATES Negative (Negative); PCP Negative (Negative)
[2021-01-27 17:58] LABS: ALBUMIN 3.1 g/dL (3.4-5.0); MAGNESIUM 1.3 mg/dL (1.8-2.4); SGOT 89 U/L (15-37); SGPT 34 U/L (14-59); TOTAL BILIRUBIN 2.3 mg/dL (0.2-1.0); TOTAL PROTEIN 8.8 g/dL (6.4-8.2)
[2021-01-27 17:59] LABS: POTASSIUM 4.6 mmol/L (3.5-5.1); SALICYLATE < 2.8 mg/dL (2.8-20.0)
[2021-01-27] MEDS ORDERED: BACTRIM DS TAB1 EACH PO (21:40)
[2021-01-27] MEDS ORDERED: ZOFRAN ODT4 MG PO (21:41)
[2021-01-27 21:59] VITALS: BP 118/77
--- NOTE | 2021-01-28 08:17 | EKG ---
[facility] [employer] [place] [address] ELECTROCARDIOGRAM REPORT Name: ELVIRA STILL [facility] [id number] Admission: 01/27/21 Attend Phys: Discharge: 01/27/21 Date of : 88 Report #: [id number] [facility] ED Test Date: 2021-01-27 Test Time: 16:52:09 Pat Name: ELVIRA STILL Department: Room: Gender: F Core Sticker: faisal : 1990 Requested By: Aj Harper Order Number: [id number] MD: Ba Bo Measurements Intervals [place] Rate: 114 P: 78 AK: 128 QRS: 80 QRSD: 90 T: 41 QT: 348 QTc: 480 Interpretive Statements Sinus tachycardia Ventricular premature complex LAE, consider biatrial enlargement Borderline prolonged QT interval Compared to ECG 09/21/2020 20:03:39 Ventricular premature complex(es) now present Sinus rhythm no longer present Possible ischemia no longer present Electronically Signed On 01-28-2021 8:17:37 CDT by Ba Bo [email or web address] <ELECTRONICALLY SIGNED> By: Ba Bo MD, [facility] 01/28/21 0817 [id number] [id number] Ba Bo MD, [facility] /EPI
== END 2021-01-27 22:00 | disposition home or self-care (01) ==
LOC: ER 16:23
PROVIDERS: Emergency Medicine
DX: R21 Rash and other nonspecific skin eruption (principal); R11.2 Nausea with vomiting, unspecified; F17.210 Nicotine dependence, cigarettes, uncomplicated; Z79.899 Other long term (current) drug therapy; I10 Essential (primary) hypertension; Z20.822 Contact with and (suspected) exposure to COVID-19

== ENCOUNTER 2021-05-23 06:33 | Emergency (ER) | payer OTHER ==
[~2021-05-23] VITALS: Ht 157.5 cm; Wt 57.6 kg
[~2021-05-23 06:33] MED LIST changes: +BACTRIM DS TAB1 EACH PO; +ZOFRAN ODT4 MG PO
[2021-05-23 07:16] LABS: URINE BLOOD 3+ (Negative); URINE CLARITY TURBID; URINE COLOR RED; URINE GLUCOSE-RANDOM* TRACE (Negative); URINE KETONES NEGATIVE (Negative); URINE LEUKOCYTES-REFLEX TRACE (Negative); URINE NITRITE-REFLEX NEGATIVE (Negative); URINE PROTEIN (DIPSTICK) 2+ (Negative)
[2021-05-23 07:17] LABS: ICTOTEST (BILI CONFIRMATORY) Negative (Negative); URINE BILIRUBIN NEGATIVE (Negative)
[2021-05-23 07:19] LABS: BACTERIA-REFLEX 1-9 Few /HPF (None Seen); CASTS None Seen /LPF (None Seen); CRYSTALS None Seen /LPF (None Seen); URINE RBC >20 Many /HPF (NONE SEEN)
[2021-05-23 07:20] LABS: SQUAMOUS 0-3 Few /LPF (0-3); URINE WBC-REFLEX 0-5 Rare /HPF (0-5)
[2021-05-23 07:33] LABS: HEMATOCRIT 34.5 % (37.0-47.0); MCH 27.7 pg (26.0-34.0); MCV 86.5 fL (80.0-100.0); RBC 3.99 mil/uL (4.20-5.00); RDW 22.1 % (10.5-14.5); WBC 5.7 thou/uL (4.0-11.0)
[2021-05-23 07:44] LABS: CALCIUM 7.7 mg/dL (8.5-10.1); CREATININE 0.5 mg/dL (0.6-1.0); POTASSIUM 3.1 mmol/L (3.5-5.1)
[2021-05-23 08:28] VITALS: BP 128/82
== END 2021-05-23 08:28 | disposition home or self-care (01) ==
LOC: ER 06:33
PROVIDERS: Emergency Medicine
DX: N93.9 Abnormal uterine and vaginal bleeding, unspecified (principal); F41.9 Anxiety disorder, unspecified; F10.10 Alcohol abuse, uncomplicated; F31.9 Bipolar disorder, unspecified; I10 Essential (primary) hypertension; F17.210 Nicotine dependence, cigarettes, uncomplicated; Z98.890 Other specified postprocedural states; Z79.899 Other long term (current) drug therapy; Z88.0 Allergy status to penicillin

== ENCOUNTER 2021-05-30 19:53 | Inpatient (IN) | payer OTHER ==
[~2021-05-30] VITALS: Ht 157.5 cm; Wt 55.4 kg
[2021-05-30 20:00] VITALS: BP 132/97
[2021-05-30 20:42] LABS: URINE BLOOD 1+ (Negative); URINE COLOR YELLOW; URINE GLUCOSE-RANDOM* TRACE (Negative); URINE KETONES 3+ (Negative); URINE NITRITE-REFLEX NEGATIVE (Negative); URINE PROTEIN (DIPSTICK) 2+ (Negative); URINE SPECIFIC GRAVITY >= 1.030 (1.005-1.035)
[2021-05-30 20:45] LABS: ICTOTEST (BILI CONFIRMATORY) Negative (Negative); URINE BILIRUBIN NEGATIVE (Negative); URINE CLARITY HAZY; URINE LEUKOCYTES-REFLEX 1+ (Negative)
[2021-05-30 20:50] LABS: SQUAMOUS 4-10 Moderate /LPF (0-3)
[2021-05-30 20:51] LABS: URINE RBC 3-10 Few /HPF (NONE SEEN)
[2021-05-30 20:52] LABS: CASTS None Seen /LPF (None Seen); CRYSTALS None Seen /LPF (None Seen)
[2021-05-30 21:11] LABS: ABSOLUTE NEUTROPHILS 9.5 thou/uL (1.4-8.2); BASOPHILS 0.5 % (0.0-2.0); HEMATOCRIT 31.7 % (37.0-47.0); LYMPHOCYTES 3.9 % (24.0-44.0); MCH 28.1 pg (26.0-34.0); MCHC 31.5 g/dL (28.0-37.0); MCV 89.3 fL (80.0-100.0); MONOCYTES 4.1 % (1.0-8.0); PLATELET COUNT 73 thou/uL (150-400); POLYS 91.5 % (36.0-66.0); RBC 3.55 mil/uL (4.20-5.00); RDW 22.1 % (10.5-14.5); WBC 10.4 thou/uL (4.0-11.0)
[2021-05-30 21:19] LABS: CALCIUM 9.1 mg/dL (8.5-10.1); CREATININE 0.8 mg/dL (0.6-1.0); POTASSIUM 3.8 mmol/L (3.5-5.1)
[2021-05-30 21:29] LABS: ALBUMIN 3.8 g/dL (3.4-5.0); DIRECT BILIRUBIN 2.7 mg/dL (<0.1-0.2); TOTAL PROTEIN 9.2 g/dL (6.4-8.2)
[2021-05-30 21:37] LABS: TOTAL BILIRUBIN 4.5 mg/dL (0.2-1.0)
[2021-05-30 22:08] LABS: AMP/METHAMP Negative (Negative); BARBITURATES Negative (Negative); BENZODIAZEPINES Negative (Negative); COCAINE Negative (Negative); METHADONE Negative (Negative); OPIATES Negative (Negative); PCP Negative (Negative)
[2021-05-31 05:01] LABS: HEMATOCRIT 25.7 % (37.0-47.0); HEMOGLOBIN 8.4 gm/dL (12.0-15.0); MCHC 32.5 g/dL (28.0-37.0); MCV 86.2 fL (80.0-100.0); RBC 2.98 mil/uL (4.20-5.00); RDW 21.7 % (10.5-14.5)
[2021-05-31 06:41] VITALS: BP 117/79
[2021-05-31 06:44] LABS: ALBUMIN 3.2 g/dL (3.4-5.0); CALCIUM 7.7 mg/dL (8.5-10.1); CREATININE 0.7 mg/dL (0.6-1.0); MAGNESIUM 2.2 mg/dL (1.8-2.4); TOTAL BILIRUBIN 3.3 mg/dL (0.2-1.0); TOTAL PROTEIN 8.2 g/dL (6.4-8.2)
[2021-05-31 07:33] VITALS: BP 117/79
--- NOTE | 2021-05-31 07:33 | EKG ---
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1990 Requested By: Nolan Ramirez Order Number: [id number] MD: Ba Bo Measurements Intervals [place] Rate: 109 P: 80 WA: 130 QRS: 82 QRSD: 108 T: 60 QT: 394 QTc: 531 Interpretive Statements Sinus tachycardia Borderline T abnormalities, anterior leads Prolonged QT interval Compared to ECG 01/27/2021 16:52:09 T-wave abnormality now present Ventricular premature complex(es) no longer present Electronically Signed On 05-31-2021 7:33:29 LOG CARRIER OPERATOR by Ba Bo [email or web address] <ELECTRONICALLY SIGNED> By: Ba Bo MD, [facility] 05/31/2133 07 07 Ba Bo MD, [facility] /EPI
[2021-05-31 08:11] VITALS: BP 137/97
[2021-05-31 11:30] VITALS: BP 117/81
--- NOTE | 2021-05-31 15:09 | NUR ---
WOUND CONSULT: THIS IS OUT OF MY SCOPE OF PRACTICE. PLEASE CONSULT DERMATOLOGY OR DR DIALLO.
--- NOTE | 2021-05-31 15:15 | EKG ---
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
[2021-05-31 15:23] VITALS: BP 119/80
--- NOTE | 2021-05-31 18:49 | NUR ---
RN ASSUMED PT'S CARE AT 0800AM, PT ADMITTED FROM ER FRO N/V , ALCOHOLIC HEPATITIS AND POSITIVE COVID, PT IS A&OX4, PT IS ON ROOM AIR, PT IS CONTINUING IV FLUID, TREAT COVID AND N/V ,PAIN MANAGEMENT, PT IS TOLEARATIVE CLEAR LIQUID DIET .
[2021-05-31 20:00] VITALS: BP 126/88
[2021-06-01] VITALS: BP 120/88
--- NOTE | 2021-06-01 01:18 | NUR ---
PROGRESS PT A/O X4. RATING ANXIETY A 10 OUT OF 0/10 1 MG ATIVAN GIVEN FOR ANXIETY AND CIWA SCORE OF 6. REPORTS NAUSEA AND COMPAZINE GIVEN X 1 D/Y REGLAN GIVEN SHORTLY BEFORE SHIFT CHANGE WITHOUT EFFECT. PT HAD BEEN CHUGGING WATER AND THEN VOMITING SO SMALL GLASSES OF WATER PROVIDED AT A TIME NO VOMITING NOTED. TOOK 2 CUPS OF CHICKEN BROTH AND A FEW SALTINE CRACKERS AND TOLERATED WELL. UP AD PIERO TO C GAIT STEADY VOIDING QS. REPORTED GENERALIZED BODY ACHES AND REQUESTED TRAMADOL GIVEN WITH EFFECT PT SLEEPING AFTER. TELEMETRY INTACT READING ST WITH RATES IN THE 90'S. CONTINUE POC.
[2021-06-01 02:53] VITALS: BP 133/89
[2021-06-01 04:26] LABS: CALCIUM 8.5 mg/dL (8.5-10.1); CREATININE 0.6 mg/dL (0.6-1.0); POTASSIUM 3.5 mmol/L (3.5-5.1)
[2021-06-01 05:00] LABS: HEMATOCRIT 26.6 % (37.0-47.0); HEMOGLOBIN 8.7 gm/dL (12.0-15.0); MCH 28.5 pg (26.0-34.0); MCHC 32.6 g/dL (28.0-37.0); MCV 87.5 fL (80.0-100.0); RBC 3.04 mil/uL (4.20-5.00); RDW 21.3 % (10.5-14.5); WBC 3.2 thou/uL (4.0-11.0)
[2021-06-01 07:47] VITALS: BP 123/87
[2021-06-01 11:22] VITALS: BP 123/87
--- NOTE | 2021-06-01 11:30 | NUR ---
INITIAL ASSESSMENT: SW reviewed chart and spoke with nursing and attending physician. Pt was admitted from home due to nausea/vomiting/abdominal pain. Pt had positive COVID test in the ER and has been placed in Enhanced Isolation. Per chart, pt has not received a COVID vaccination. Pt with hx of ETOH abuse and medical non-compliance. Pt is afebrile and on room air. Pt is on IV abx. SW spoke with pt via phone. Introduced role of SW. Pt is known to SW from prior hospitalizations. Pt is alert/orientated x 4. Pt reports she lives at home with family. Prior to admission, pt was independent with ADLs. Pt has a walker at home to use as needed. Pt states sometimes when she has joint pain, she will use the walker. Pt reports she is on a liquid diet at this time and is hoping for her diet to bed advanced today. Pt reports her PCP is Dr. Uzair Corley. No hx of HH services or post-acute placement. Pt has declined referrals for ETOH resources in the past. Plan is for pt to discharge home when medically stable. SW is following to assist as needed with discharge planning.
[2021-06-01 15:39] VITALS: BP 130/93
--- NOTE | 2021-06-01 16:28 | NUR ---
PT ALERT AND ORIENTED TIMES FOUR. VSS. IVF INFUSING PER ORDERS. PT C/O PAIN/NAUSEA/ANXIETY PRN MEDICATIONS GIVEN FOR ALL WITH SOME RELEIF. PT UP AB PIERO WITH STEADY GAIT. PT TOLERATES MEDS AND MEALS. WILL CONTINUE TO MONITOR.
[2021-06-01 20:22] VITALS: BP 120/88
--- NOTE | 2021-06-02 05:00 | NUR ---
ASSUMED PT CARE AT 1900. PT IS ALERT & ORIENTED X 4. PT HAS MULTIPLE C/O OF PAIN AND N/V. PRN MEDICATIONS GIVEN FOR ALL AND PARTIAL RELIEF NOTED. CIWA Q4 RANGING FROM 5-9. VSS AFEBRILE. PT IS ABLE TO MAKE NEEDS KNOWN. ALL NEEDS ARE MET AT THIS TIME. WILL CONTINUE TO MONITOR FOR ANY CHANGES.
[2021-06-02 05:52] VITALS: BP 120/90
--- NOTE | 2021-06-02 06:13 | NUR ---
PT'S HR IS ELEVATED RUNNING AT 130-140'S. NOTIFIED STRANNER. NO NEW ORDERS RECEIVED.
[2021-06-02 07:23] VITALS: BP 119/93
[2021-06-02 09:48] LABS: ABSOLUTE NEUTROPHILS 2.5 thou/uL (1.4-8.2); BASOPHILS 0.4 % (0.0-2.0); EOSINOPHILS 1.1 % (0.0-3.0); HEMATOCRIT 27.7 % (37.0-47.0); HEMOGLOBIN 8.9 gm/dL (12.0-15.0); MCH 28.4 pg (26.0-34.0); MCHC 32.1 g/dL (28.0-37.0); MCV 88.4 fL (80.0-100.0); MONOCYTES 5.1 % (1.0-8.0); POLYS 80.4 % (36.0-66.0); RBC 3.13 mil/uL (4.20-5.00); RDW 21.3 % (10.5-14.5); WBC 3.1 thou/uL (4.0-11.0)
[2021-06-02 09:50] LABS: PLATELET COUNT 48 thou/uL (150-400)
[2021-06-02 09:58] LABS: CALCIUM 9.1 mg/dL (8.5-10.1); CREATININE 0.6 mg/dL (0.6-1.0); MAGNESIUM 1.5 mg/dL (1.8-2.4); POTASSIUM 3.5 mmol/L (3.5-5.1)
[2021-06-02 11:46] VITALS: BP 121/87
--- NOTE | 2021-06-02 15:00 | NUR ---
SW spoke with nursing and attending physician. Pt remains in Enhanced Isolation due to COVID. Pt is progressing towards goals for discharge. Discharge home is anticipated in 1-2 days. SW is following to assist as needed with discharge planning.
[2021-06-02 15:39] VITALS: BP 131/99
--- NOTE | 2021-06-02 17:48 | NUR ---
assumed care of pt at 0700. pt alert and oriented x2, emotional, forgetful, impulsive. CIWA 9-18. ativan provided PRN. frequently trying to leave to have cigarette. all fall precautions in place. sinus tach on telemetry.
[2021-06-02 19:28] VITALS: BP 122/90
[2021-06-03 03:45] VITALS: BP 118/85
--- NOTE | 2021-06-03 05:31 | NUR ---
Patient making progress towards outcome goals. No COVID symptoms, Oxygenation optimal on room air. CIWA 9-16, medicated per protocol. Patient oriented to person, forgets place at times, thinks she is in a hotal and having visual hallucinations. Never remembers to call for assistance in getting out of bed for bathroom needs. Fall precautions in place. Vital signs and rhythm stable.
--- NOTE | 2021-06-03 05:46 | NUR ---
Patient repeatedly saying she wants to go out," Wants a drink". Then she wound ask for IV pain medication for psoriatic pain, states the IV pain medicine works better.
[2021-06-03 10:00] VITALS: BP 100/65
--- NOTE | 2021-06-03 10:39 | NUR ---
PT BED ALARM GOING OFF, THIS RN ENTERED THE ROOM AND FOUND PT OOB WITH IV LINE TANGLED AND SALES SYSTEMS ENGINEER ACROSS THE ROOM. PT CRYING AND SCREAMING FOR HER CHILDREN AND ACCUSING THIS RN OF "KIDNAPPING ME" AND HOLDING HER AGAINST HER WILL. PT ON CIWA PROTOCOL, DE-ESCALATED SITUATION AND WALKED PT TO BATHROOM AND BACK TO BED. PT REFUSING CARES, YELLOW SOCKS & HEAD-TO-TOE ASSESSMENT. REQUESTING IV PAIN MEDS ONLY. DR SHINE NOTIFIED. WILL CONTINUE TO MONITOR.
--- NOTE | 2021-06-03 11:12 | NUR ---
SW reviewed chart and spoke with nursing and attending physician. Pt remains in Enhanced Isolation due to COVID. Pt is afebrile and on room air. Pt is on IV abx and a regular diet. Pt starting to show signs/symptoms of ETOH withdrawal. Pt has become agitated with nursing. Pt with hx of leaving AMA. Plan is for pt to discharge home when medically stable. TICO is following to assist as needed with discharge planning.
[2021-06-03 14:00] VITALS: BP 110/82
--- NOTE | 2021-06-03 15:53 | NUR ---
SPOKE WITH PT MOM, DEN, TODAY VIA PHONE. UPDATED HER ON PT CONDITION AND POC. MOTHER IS AGREEABLE TO PT STAYING OVERNIGHT, CONTINUING WITHDRAWAL MONITORING.
[2021-06-03 17:00] VITALS: BP 105/76
[2021-06-03 19:45] VITALS: BP 120/91
[2021-06-04 04:00] VITALS: BP 109/76
--- NOTE | 2021-06-04 04:34 | NUR ---
CARE ASSUMED AT 1900. PT IS ALERT & ORIENTED X 3, IS ANXIOUS AND RESTLESS. PT STATES THAT SHE IS READY TO GO HOME. REASSURED AND REDIRECTED PT NEEDED. CIWA 8-9. NO VISUAL OR AUDITORY HALLUCINATIONS NOTED. ATIVAN ADMINISTERED Q2 PRN AND SOME RELIEF NOTED. VSS AFEBRILE. PT IS PROGRESSING TOWARDS POC GOALS. CONTINUE WITH PLAN OF CARE.
[2021-06-04 05:28] LABS: HEMATOCRIT 24.9 % (37.0-47.0); HEMOGLOBIN 8.1 gm/dL (12.0-15.0); MCH 28.8 pg (26.0-34.0); MCHC 32.3 g/dL (28.0-37.0); MCV 89.1 fL (80.0-100.0); RBC 2.79 mil/uL (4.20-5.00); RDW 22.1 % (10.5-14.5); WBC 2.8 thou/uL (4.0-11.0)
[2021-06-04 05:53] LABS: CALCIUM 8.1 mg/dL (8.5-10.1); CREATININE 0.6 mg/dL (0.6-1.0); POTASSIUM 3.4 mmol/L (3.5-5.1)
[2021-06-04 07:41] VITALS: BP 127/92
--- NOTE | 2021-06-04 13:24 | NUR ---
AMA NOTE: TICO reviewed chart and spoke with nursing and attending physician. Pt remains in Enhanced Isolation due to COVID. Pt afebrile and on room air. Psych consult ordered yesterday. Pt did not have capacity to leave AMA yesterday. Pt's condition has improved. Attending physician stated pt has capacity to leave AMA today. But would prefer pt remain in the hospital and be discharged home tomorrow. Pt signed AMA ppwk this afternoon. SW is available to assist should needs arise.
--- NOTE | 2021-06-04 15:17 | NUR ---
RN ASSUMED PT'S CARE AT 0700-1130AM, PT IS A&OX3-4 , BUT PT STILL HAS SOME ANXIETY, PT'S VS ARE STABLE, PT TAKES ALL MONRING MEDICATIONDS, HOSPITAL DR HAS SEEING THE PT, BUT PT HAS CALLED RN , SHE NEEDS TO GO HOME WITHOUT DR PANIAGUA ORDER, PT HAS SIGNED RELEASE FROM RESPONSIBILITY FOR DISCHARGE , PT LEFT 3W AT 1130AM, 3W STAFF ORACLE REPORTS DEVELOPER SENT PT TO ER FRON DOOR TO WAIT FOR TRANSPORTATION , RN HAS NOTIFIED PT'S MONTHER ABOUT PT GO HOME WOITHOUT ORDER.
== END 2021-06-04 13:08 | disposition left against medical advice (07) | DRG 689 ==
LOC: ER 19:53 → 3W 05-31 02:05 → EROBS 05-31 02:05 → ICU 05-31 02:40 → EROBS 05-31 02:52 → 3W 05-31 07:33
PROVIDERS: Hospitalist; Nurse Practitioner Family; Student in an Organized Health Care Education/Training Program; ADMIT Internal Medicine; ATTEND Internal Medicine
DX: N39.0 Urinary tract infection, site not specified (principal); U07.1 COVID-19; E87.2 Acidosis; F10.239 Alcohol dependence with withdrawal, unspecified; Z71.6 Tobacco abuse counseling; F41.9 Anxiety disorder, unspecified; Y90.3 Blood alcohol level of 60-79 mg/100 ml; F10.229 Alcohol dependence with intoxication, unspecified; F17.210 Nicotine dependence, cigarettes, uncomplicated; K76.0 Fatty (change of) liver, not elsewhere classified; I10 Essential (primary) hypertension; E83.42 Hypomagnesemia; I86.8 Varicose veins of other specified sites; Z53.29 Procedure and treatment not carried out because of patient's decision for other reasons; F31.9 Bipolar disorder, unspecified; K74.60 Unspecified cirrhosis of liver; K70.9 Alcoholic liver disease, unspecified; F12.90 Cannabis use, unspecified, uncomplicated; Z87.11 Personal history of peptic ulcer disease; Z98.891 History of uterine scar from previous surgery; Z79.899 Other long term (current) drug therapy; Z88.0 Allergy status to penicillin; Z86.19 Personal history of other infectious and parasitic diseases; Z83.3 Family history of diabetes mellitus; Z82.49 Family history of ischemic heart disease and other diseases of the circulatory system; Z80.9 Family history of malignant neoplasm, unspecified; Z91.14 Patient's other noncompliance with medication regimen; Z71.41 Alcohol abuse counseling and surveillance of alcoholic
CPT/HCPCS: 10879